=== PATIENT | female | born 1980 | race Caucasian/White ===

== ENCOUNTER 2018-04-15 18:30 | Emergency (ER) | payer OTHER, SELFPAY ==
[2018-04-15 18:43] VITALS: BP 116/68; PULSE 82; RESP 16; TEMP 36.7; O2SAT 97
--- NOTE | 2018-04-15 18:49 | DI.RAD.S_ITS ---
PROCEDURE: XR FINGER RT MIN 2V INDICATIONS: pain and bruising TECHNIQUE: AP hand, 2 views of the right first finger(s) acquired. COMPARISON: None. FINDINGS: Exam limited by motion artifact. Bones: Cortical contour irregularity at the base of the first distal phalanx. Soft tissues: No suspicious soft tissue calcifications. IMPRESSION: Cortical contour irregularity at the base of the right first distal phalanx which may represent a nondisplaced fracture. Recommend followup radiographs in 7-10 days for further evaluation. Dictated by: Satnam Joe M.D. on 04/15/2018 at 20:00 Approved by: Satnam Joe M.D. on 04/15/2018 at 20:03
--- NOTE | 2018-04-15 19:55 | ED.UPPEXIN ---
HPI - Extremity Injury (Upper) General Chief Complaint: Extremity Injury, Upper Stated Complaint: RT THUMB INJURY Time Seen by Provider: 04/15/18 19:55 Source: patient Mode of arrival: ambulatory Limitations: no limitations History of Present Illness HPI narrative: Patient presents with right thumb injury after slamming her car door shut and over extending her thumb. She did not slam the door. She has a noncontributory medical history. She has increasing pain with range of motion and improvement with rest. She denies any numbness, tingling or weakness. She denies other injury. She has no history of the same MD complaint: injury to: right and finger Other injuries: none Handedness: right Place: home Severity: mild Relieving factors: none Exacerbating factors: none Context: direct blow Related Data Home Medications Medication Instructions Recorded Confirmed cetirizine 10 mg PO QDAYP PRN #0 07/30/17 levothyroxine [Synthroid] 0.075 mg PO QDAY #0 07/30/17 omeprazole 20 mg PO QDAY #0 07/30/17 Previous Rx's Medication Instructions Recorded hydroxyzine HCl 0 mg PO Q6HP PRN #20 tab 07/30/17 Allergies Allergy/AdvReac Type Severity Reaction Status Date / Time ciprofloxacin [From CIPRO] Allergy Severe Dizziness Unverified 04/15/18 18:43 Sulfa (Sulfonamide Allergy Severe Vomiting Unverified 04/15/18 18:43 Antibiotics) [SULFA (SULFONAMIDE ANTIBIOTICS)] latex [LATEX] Allergy Intermediate RASH Unverified 11/25/17 12:13 shrimp [SHRIMP] Allergy Intermediate Unverified 11/25/17 12:13 nitrofurantoin Allergy Verified 04/15/18 18:43 [From Macrobid] EGGS Allergy Intermediate Uncoded 11/25/17 12:13 AVACADO Allergy Unknown Uncoded 11/25/17 12:13 Review of Systems Review of Systems All systems reviewed & are unremarkable except as noted in HPI and below Constitutional Denies chills, Denies fever(s), Denies lethargy and Denies weakness Eyes Denies change in vision, Denies eye discharge, Denies irritation and Denies loss of vision ENT Ears, Nose, Mouth, and Throat: Denies change in voice, Denies neck pain and Denies sore throat Cardiovascular Denies chest pain, Denies irregular heart rhythm, Denies lightheadedness, Denies palpitations, Denies dyspnea, Denies dyspnea on exertion and Denies orthopnea Respiratory Denies cough, Denies dyspnea, Denies dyspnea on exertion and Denies wheezing Gastrointestinal Gastrointestinal: Denies abdominal pain, Denies change in bowel habits, Denies diarrhea, Denies nausea and Denies vomiting Genitourinary Denies hematuria, Denies flank pain, Denies urinary incontinence and Denies urinary urgency Musculoskeletal Reports joint swelling, Reports limited range of motion and Denies neck pain Integumentary/Breasts Denies pruritus, Denies erythema, Denies rash and Denies wounds Neurologic Denies confusion, Denies loss of vision and Denies weakness Psychiatric Denies anxiety, Denies confusion, Denies depression, Denies homicidal ideation and Denies suicidal ideation Endocrine Denies palpitations Hematologic/Lymphatic Denies easy bruising Allergic/Immunologic Denies wheezing [facility] Social History Smoking Status: Never smoker Exam Narrative Exam Narrative: GEN: AOx3 and in mild distress EYES: Pupils are equal, round, and reactive to light and accommodation. Extraoccular muscles are intact bilaterally. There is no subconjunctival hemorrhage or exudate. CHEST: Lungs are clear to auscultation bilaterally and free of wheezes, rales, or rhonchi. Heart rate is regular rhythm, there are no murmurs, clicks, rubs, or gallops. There is no chest wall tenderness. ABD: Abdomen is soft and nontender. There is no guarding or rebound. Bowel sounds are normal in all 4 quadrants. There is no mass or organomegaly. EXT: Full but painful range of motion of right thumb with tenderness at the interphalangeal joint Full painless ROM of all extremities with no loss of sensation or strength. SKIN: Warm, pink, and dry. No erythema or rash Initial Vital Signs Initial Vital Signs: Vital Signs Temperature 98.0 F 04/15/18 18:43 Pulse Rate 82 04/15/18 18:43 Respiratory Rate 16 04/15/18 18:43 Blood Pressure 116/68 04/15/18 18:43 Pulse Oximetry 97 04/15/18 18:43 Procedures Orthopedic Splinting/Casting Injury #1: Side: right Upper Extremity Injury Location: finger Upper Extremity Immobilizer: thumb spica Course Orders Ordered: ED Orders 04/15/18 18:49 XR finger RT min 2V Stat Vital Signs - 8 hr 04/15/18 18:43 04/15/18 20:18 Temperature 98.0 F 98.0 F Pulse Rate 82 82 Respiratory Rate 16 16 Blood Pressure 116/68 116/68 Pulse Oximetry 97 97 MDM - Extremity Injury (Upper) Differential Diagnosis Differential diagnosis: Likely finger sprain, dislocation of finger and fracture of hand Imaging Data Finger Xray: Radiologist's impression: [address] [address] XRay Report Signed Patient: Zunilda Richards [facility]#: [id number] : 1980Acct:[id number] Age/Sex: 37 / FDate of Service: 04/15/18 Loc: ED Accession Number: [id number] Procedure: XR finger RT min 2V Ordering Provider: Mynor Jensen D.O. PROCEDURE: XR FINGER RT MIN 2V INDICATIONS: pain and bruising TECHNIQUE: AP hand, 2 views of the right first finger(s) acquired. COMPARISON: None. FINDINGS: Exam limited by motion artifact. Bones: Cortical contour irregularity at the base of the first distal phalanx. Soft tissues: No suspicious soft tissue calcifications. IMPRESSION: Cortical contour irregularity at the base of the right first distal phalanx which may represent a nondisplaced fracture. Recommend followup radiographs in 7-10 days for further evaluation. Dictated by: Satnam Joe M.D. on 04/15/2018 at 20:00 Approved by: Satnam Joe M.D. on 04/15/2018 at 20:03 Discharge Plan Departure Patient Disposition: Home Clinical Impression: Fracture of thumb Discharge Date/Time: 04/15/18 20:50 Interventions: ED Discharge Assessment Last Done: 04/15/18 20:53 Instructions: DI for Finger Fracture Activity Restrictions/Additional Instructions: *You have been diagnosed with [ non displaced thumb fracture ] *What to do: *Wear splint for comfort, more often than not until you can follow up *Follow up with your primary care provider in 2-3 days, call for an appointment. Let them know you were seen in the Emergency Department and that we ask that you be seen in follow up *Return to ER if you should have any new, worsening or concerning symptoms Prescriptions: No Action cetirizine 10 MG tablet 10 mg PO QDAYP PRNQty: 0 RF: 0 levothyroxine [Synthroid] 75 MCG tablet 0.075 mg PO QDAY Qty: 0 RF: 0 omeprazole 20 MG capsule,delayed release(DR/EC) 20 mg PO QDAY Qty: 0 RF: 0 hydroxyzine HCl 25 MG tablet PO Q6HP PRNQty: 20 RF: 0 Referrals: Singh Petty CNP [Primary Care Provider] - Tabby Simon MD [Physician] -
[2018-04-15 20:18] VITALS: BP 116/68; PULSE 82; RESP 16; TEMP 36.7; O2SAT 97
--- NOTE | 2018-04-15 20:20 | ED_ITS ---
HPI - Extremity Injury (Upper) General Chief Complaint: Extremity Injury, Upper Stated Complaint: RT THUMB INJURY Time Seen by Provider: 04/15/18 19:55 Source: patient Mode of arrival: ambulatory Limitations: no limitations History of Present Illness HPI narrative: Patient presents with right thumb injury after slamming her car door shut and over extending her thumb. She did not slam the door. She has a noncontributory medical history. She has increasing pain with range of motion and improvement with rest. She denies any numbness, tingling or weakness. She denies other injury. She has no history of the same MD complaint: injury to: right and finger Other injuries: none Handedness: right Place: home Severity: mild Relieving factors: none Exacerbating factors: none Context: direct blow Related Data Home Medications Medication Instructions Recorded Confirmed cetirizine 10 mg PO QDAYP PRN #0 07/30/17 levothyroxine [Synthroid] 0.075 mg PO QDAY #0 07/30/17 omeprazole 20 mg PO QDAY #0 07/30/17 Previous Rx's Medication Instructions Recorded hydroxyzine HCl 0 mg PO Q6HP PRN #20 tab 07/30/17 Allergies Allergy/AdvReac Type Severity Reaction Status Date / Time ciprofloxacin [From CIPRO] Allergy Severe Dizziness Unverified 04/15/18 18:43 Sulfa (Sulfonamide Allergy Severe Vomiting Unverified 04/15/18 18:43 Antibiotics) [SULFA (SULFONAMIDE ANTIBIOTICS)] latex [LATEX] Allergy Intermediate RASH Unverified 11/25/17 12:13 shrimp [SHRIMP] Allergy Intermediate Unverified 11/25/17 12:13 nitrofurantoin Allergy Verified 04/15/18 18:43 [From Macrobid] EGGS Allergy Intermediate Uncoded 11/25/17 12:13 AVACADO Allergy Unknown Uncoded 11/25/17 12:13 Review of Systems Review of Systems All systems reviewed & are unremarkable except as noted in HPI and below Constitutional Denies chills, Denies fever(s), Denies lethargy and Denies weakness Eyes Denies change in vision, Denies eye discharge, Denies irritation and Denies loss of vision ENT Ears, Nose, Mouth, and Throat: Denies change in voice, Denies neck pain and Denies sore throat Cardiovascular Denies chest pain, Denies irregular heart rhythm, Denies lightheadedness, Denies palpitations, Denies dyspnea, Denies dyspnea on exertion and Denies orthopnea Respiratory Denies cough, Denies dyspnea, Denies dyspnea on exertion and Denies wheezing Gastrointestinal Gastrointestinal: Denies abdominal pain, Denies change in bowel habits, Denies diarrhea, Denies nausea and Denies vomiting Genitourinary Denies hematuria, Denies flank pain, Denies urinary incontinence and Denies urinary urgency Musculoskeletal Reports joint swelling, Reports limited range of motion and Denies neck pain Integumentary/Breasts Denies pruritus, Denies erythema, Denies rash and Denies wounds Neurologic Denies confusion, Denies loss of vision and Denies weakness Psychiatric Denies anxiety, Denies confusion, Denies depression, Denies homicidal ideation and Denies suicidal ideation Endocrine Denies palpitations Hematologic/Lymphatic Denies easy bruising Allergic/Immunologic Denies wheezing [facility] Social History Smoking Status: Never smoker Exam Narrative Exam Narrative: GEN: AOx3 and in mild distress EYES: Pupils are equal, round, and reactive to light and accommodation. Extraoccular muscles are intact bilaterally. There is no subconjunctival hemorrhage or exudate. CHEST: Lungs are clear to auscultation bilaterally and free of wheezes, rales, or rhonchi. Heart rate is regular rhythm, there are no murmurs, clicks, rubs, or gallops. There is no chest wall tenderness. ABD: Abdomen is soft and nontender. There is no guarding or rebound. Bowel sounds are normal in all 4 quadrants. There is no mass or organomegaly. EXT: Full but painful range of motion of right thumb with tenderness at the interphalangeal joint Full painless ROM of all extremities with no loss of sensation or strength. SKIN: Warm, pink, and dry. No erythema or rash Initial Vital Signs Initial Vital Signs: Vital Signs Temperature 98.0 F 04/15/18 18:43 Pulse Rate 82 04/15/18 18:43 Respiratory Rate 16 04/15/18 18:43 Blood Pressure 116/68 04/15/18 18:43 Pulse Oximetry 97 04/15/18 18:43 Procedures Orthopedic Splinting/Casting Injury #1: Side: right Upper Extremity Injury Location: finger Upper Extremity Immobilizer: thumb spica Course Orders Ordered: ED Orders 04/15/18 18:49 XR finger RT min 2V Stat Vital Signs - 8 hr 04/15/18 18:43 04/15/18 20:18 Temperature 98.0 F 98.0 F Pulse Rate 82 82 Respiratory Rate 16 16 Blood Pressure 116/68 116/68 Pulse Oximetry 97 97 MDM - Extremity Injury (Upper) Differential Diagnosis Differential diagnosis: Likely finger sprain, dislocation of finger and fracture of hand Imaging Data Finger Xray: Radiologist's impression: [address] [address] XRay Report Signed Patient: Zunilda Richards [facility]#: [id number] : 1980Acct:[id number] Age/Sex: 37 / FDate of Service: 04/15/18 Loc: ED Accession Number: [id number] Procedure: XR finger RT min 2V Ordering Provider: Mynor Jensen D.O. PROCEDURE: XR FINGER RT MIN 2V INDICATIONS: pain and bruising TECHNIQUE: AP hand, 2 views of the right first finger(s) acquired. COMPARISON: None. FINDINGS: Exam limited by motion artifact. Bones: Cortical contour irregularity at the base of the first distal phalanx. Soft tissues: No suspicious soft tissue calcifications. IMPRESSION: Cortical contour irregularity at the base of the right first distal phalanx which may represent a nondisplaced fracture. Recommend followup radiographs in 7 -10 days for further evaluation. Dictated by: Satnam Joe M.D. on 04/15/2018 at 20:00 Approved by: Satnam Joe M.D. on 04/15/2018 at 20:03 Discharge Plan Departure Patient Disposition: Home Clinical Impression: Fracture of thumb Discharge Date/Time: 04/15/18 20:50 Interventions: ED Discharge Assessment Last Done: 04/15/18 20:53 Instructions: DI for Finger Fracture Activity Restrictions/Additional Instructions: *You have been diagnosed with [ non displaced thumb fracture ] *What to do: *Wear splint for comfort, more often than not until you can follow up *Follow up with your primary care provider in 2-3 days, call for an appointment. Let them know you were seen in the Emergency Department and that we ask that you be seen in follow up *Return to ER if you should have any new, worsening or concerning symptoms Prescriptions: No Action cetirizine 10 MG tablet 10 mg PO QDAYP PRNQty: 0 RF: 0 levothyroxine [Synthroid] 75 MCG tablet 0.075 mg PO QDAY Qty: 0 RF: 0 omeprazole 20 MG capsule,delayed release(DR/EC) 20 mg PO QDAY Qty: 0 RF: 0 hydroxyzine HCl 25 MG tablet PO Q6HP PRNQty: 20 RF: 0 Referrals: Singh Petty CNP [Primary Care Provider] - Tabby Simon MD [Physician] -
== END 2018-04-15 20:50 | disposition home or self-care (01) ==
PROVIDERS: Emergency Provider Emergency Medicine; Family Provider Registered Nurse Diabetes Educator; PCP Registered Nurse Diabetes Educator
DX: S62.501A Fracture of unspecified phalanx of right thumb, initial encounter for closed fracture (principal); W23.0XXA Caught, crushed, jammed, or pinched between moving objects, initial encounter
CPT/HCPCS: 73140; 99282; 99283

== ENCOUNTER 2018-05-12 08:41 | Emergency (ER) | payer OTHER, SELFPAY ==
--- NOTE | 2018-05-12 08:59 | ED.ABDPAIN ---
HPI - Abdominal Pain General Chief Complaint: Abdominal Pain Stated Complaint: abdomen on fire, bloody stool Time Seen by Provider: 05/12/18 08:59 Source: patient Mode of arrival: ambulatory Limitations: no limitations History of Present Illness HPI narrative: The patient is an otherwise healthy 37-year-old female without prior abdominal issues and without prior abdominal surgeries here for evaluation of 2-3 days of generalized abdominal pain and then approximately 1 day of bloody stools. She also states that she has started her menstrual cycle 3 days ago. She states she has not had a menstrual cycle for years secondary to having the IUD in placed. She denies any other symptoms to include fevers or urinary symptoms. No recent camping. Patient is not concerned about sexually transmitted infections. Has not tried anything for abdominal pain since then. She states that having bowel movements have not changed her abdominal pain. No vomiting. Related Data Home Medications Medication Instructions Recorded Confirmed cetirizine 10 mg PO QDAYP PRN #0 07/30/17 05/12/18 omeprazole 20 mg PO QDAY #0 07/30/17 05/12/18 cyclobenzaprine 1 tab PO PRN PRN 05/12/18 05/12/18 ibuprofen 800 mg PO PRN PRN 05/12/18 05/12/18 levothyroxine [Synthroid] 25 mcg PO DAILY 05/12/18 05/12/18 pseudoephedrine HCl [Sudafed] 1 tab PO PRN PRN 05/12/18 05/12/18 Allergies Allergy/AdvReac Type Severity Reaction Status Date / Time ciprofloxacin [From CIPRO] Allergy Severe Dizziness Verified 05/12/18 09:08 shrimp [SHRIMP] Allergy Severe Anaphylaxis Verified 05/12/18 10:36 Sulfa (Sulfonamide Allergy Severe Vomiting Verified 05/12/18 09:08 Antibiotics) [SULFA (SULFONAMIDE ANTIBIOTICS)] latex [LATEX] Allergy Intermediate RASH Verified 05/12/18 09:08 nitrofurantoin Allergy Verified 05/12/18 09:08 [From Macrobid] EGGS Allergy Intermediate Uncoded 05/12/18 09:08 AVACADO Allergy Unknown Uncoded 05/12/18 09:08 Review of Systems Constitutional Denies fever(s), Denies headache(s), Denies lethargy and Denies malaise ENT Ears, Nose, Mouth, and Throat: Denies vertigo and Denies headache(s) Cardiovascular Denies chest pain, Denies palpitations and Denies dyspnea Respiratory Denies cough and Denies dyspnea Gastrointestinal Gastrointestinal: Reports abdominal pain, Reports hematochezia, Reports change in bowel habits, Denies coffee ground emesis, Denies nausea and Denies vomiting Genitourinary Denies dysuria and Reports vaginal discharge (Started her menstrual cycle 3 days ago) Musculoskeletal Denies myalgias and Denies arthralgias Integumentary/Breasts Denies lesions and Denies rash Neurologic Denies confusion, Denies vertigo and Denies headache(s) Psychiatric Denies confusion Endocrine Denies palpitations Hematologic/Lymphatic Denies easy bleeding and Denies easy bruising Allergic/Immunologic Denies urticaria [facility]LY [facility] Medical History Gastroesophageal reflux disease (Acute) Hypothyroid (Acute) Surgical History No pertinent past surgical history (Acute) Social History Smoking Status: Never smoker Exam Initial Vital Signs Initial Vital Signs: Vital Signs Temperature 98.2 F 05/12/18 09:08 Pulse Rate 77 05/12/18 09:08 Respiratory Rate 15 05/12/18 09:08 Blood Pressure 101/65 05/12/18 09:08 Pulse Oximetry 97 05/12/18 09:08 Const General: cooperative, healthy appearing, comfortable, well developed, well groomed and No acute distress Orientation: alert, awake and oriented x3 HENMT Head: normal to inspection and normocephalic Resp Effort & Inspection: normal respiratory effort Auscultation: clear to auscultation bilaterally Cardio Rate: regular rate Rhythm: regular rhythm Heart Sounds: no murmurs Pulses: radial pulses present GI Inspection: non-distended Palpation: soft, No firm, No guarding, No rigid and tender (Diffusely tender without rebound or guarding) Rectal Exam: visual inspection normal, heme positive stool and No hemorrhoids Skin Lesions: no lesions Rashes: no rashes Neuro General: alert, awake and oriented x3 Cognition: normal cognition Speech: speech normal Motor: muscle tone normal throughout Extrem General: normal to inspection and capillary refill normal Psych Appearance: grossly normal and well kempt Course Orders Ordered: ED Orders 05/12/18 10:30 Complete Blood Count AUTO DIFF Stat Comprehensive Metabolic Panel Stat Lipase Stat Urine Microscopic Stat 05/12/18 10:32 CT abdomen pelvis w con Stat Discontinued Medications Sodium Chloride (Normal Saline 0.9%) 1,000 mls @ 1,000 mls/hr IV BOLUS ONE Stop: 05/12/18 11:24 Last Infusion: 05/12/18 12:47 Dose: 0 mls/hr Admin: 05/12/18 10:51 Dose: 1,000 mls/hr Vital Signs - 8 hr 05/12/18 11:25 05/12/18 12:45 Pulse Rate 64 Respiratory Rate 14 16 Blood Pressure [Left Arm] 105/64 100/66 Pulse Oximetry 97 MDM - Abdominal Pain Lab Data Attestation: I reviewed the patient's lab results. Result diagrams: 05/12/18 10:30 05/12/18 10:30 Lab Results 05/12/18 05/12/18 05/12/18 Range/Units 10:30 10:30 10:30 WBC 8.5 (4.5-11.0) X10^3/uL RBC 4.26 (4.0-5.2) X10^6/uL Hgb 13.9 (12.0-16.0) g/dL Hct 41.1 (36-46) % MCV 96.5 (80-100) fL MCH 32.6 (26-34) PG MCHC 33.8 (30-36) % RDW 14.3 (11.6-14.8) % Plt Count 206 (150-400) X10^3/uL Neut % (Auto) 75.6 H (50-75) % Lymph % (Auto) 15.9 L (25-40) % [place] % (Auto) 6.4 (3-14) % Eos % (Auto) 1.3 L (2-4) % Baso % (Auto) 0.8 (0-2) % Neut # (Auto) 6400 H (7263-7419) /uL Sodium 145 (137-145) mmol/L Potassium 4.1 (3.4-5.1) mmol/L Chloride 109 H (98-107) mmol/L Carbon Dioxide 25 (22-32) mmol/L BUN 11 (7-17) mg/dL Creatinine 0.60 (0.52-1.04) mg/dL Estimated GFR > 60.0 (>60) mL/min BUN/Creatinine Ratio 18.3 (6-22) Glucose 102 H (70-100) mg/dL Calcium 9.1 (8.4-10.2) mg/dL Total Bilirubin 0.7 (0.2-1.3) mg/dL AST 19 (14-36) IU/L ALT 25 (9-52) IU/L Alkaline Phosphatase 45 (38-126) U/L Total Protein 7.1 (6.3-8.2) g/dL Albumin 4.2 (3.5-5.0) g/dL Globulin 2.9 (1.7-4.1) g/dL Albumin/Globulin Ratio 1.4 (1.0-2.8) Lipase 87 (23-300) U/L Urine RBC None seen (0-5/HPF) Urine WBC None seen (0-5/HPF) Ur Squamous Epith Cells 5-10 /hpf H Urine Bacteria Moderate (10-30) H (None) Ur Culture Indicated? Cult not indicated Micro UA Comment Not Reportable Point of care testing: Point of Care Testing Test Results Negative Urine Dip Bedside Urine Glucose Negative Bedside Urine Bilirubin - Negative Bedside Urine Ketone ++ 40 Urine Specific [place] 1.025 Bedside Urine Occult Blood - Negative Bedside Urine pH 6.5 Bedside Urine Protein - Negative Bedside Urine Urobilinogen - Negative Bedside Urine Nitrite - Negative Bedside Urine Leukocytes - Negative Esterase Imaging Data CT scan - abdomen: Radiologist's impression: PROCEDURE: CT ABDOMEN PELVIS W CON INDICATIONS: Abdominal plain with rectal bleeding TECHNIQUE: After the administration of oral and intravenous contrast, 5 mm thick sections acquired from the diaphragms to the symphysis. 5 mm thick coronal and sagittal reformats were performed. For radiation dose reduction, the following was used: automated exposure control, adjustment of mA and/or kV according to patient size. COMPARISON: None. FINDINGS: Image quality: Diagnostic. ABDOMEN: Lung bases: Lung bases are clear. Heart size is normal. Solid organs: Liver is normal in size and enhancement. Gallbladder is not enlarged or inflamed. Biliary system is non-dilated. Pancreas enhances normally. Spleen is normal in size and enhancement. No adrenal nodules. Kidneys are normal in size and enhancement, without hydronephrosis. Peritoneum and bowel: The stomach, duodenum and remainder of the small bowel loops are nondilated. The appendix is well-visualized and normal. There is thickening involving the wall of the descending colon. Scattered areas of colonic diverticulosis are present. No definite mesenteric inflammation is appreciated. No free fluid, loculated fluid collection or free air is seen within the abdomen. Nodes and vessels: No retroperitoneal or mesenteric adenopathy. Aorta and inferior vena cava are normal in caliber. Miscellaneous: No ventral hernias. PELVIS: Genitourinary: Bladder wall thickness is normal. Intrauterine contraceptive device is identified within the endometrial cavity. The uterus is moderately heterogeneous, particularly involving the cervix. Miscellaneous: No inguinal hernias or adenopathy. A small amount of free fluid is seen within the pelvis. There is no loculated fluid collection or free air. Bones: No suspicious bony lesions. No vertebral body compression fractures. IMPRESSION: 1. Nonspecific wall thickening of the distal colon may represent colitis. There is no bowel obstruction. 2. Scattered colonic diverticulosis without convincing evidence of diverticulitis. 3. Heterogeneous enhancement of the uterus may be within normal limits. Please correlate clinically to exclude the possibility of an inflammatory process involving the uterus or cervix. 4. Normal appendix. Dictated by: Yogesh Santana M.D. on 05/12/2018 at 10:41 Approved by: Yogesh Santana M.D. on 05/12/2018 at 10:44 MDM Narrative Medical decision making narrative: Patient has a benign abdominal exam was grossly positive of blood on the rectal exam. The CT scan does show a colitis however no signs of diverticulitis or bowel obstructions. Patient has no risk for infectious colitis. She is afebrile does not have an elevated white blood cell count. Will hold on any antibiotics for now. Patient has started her menstrual cycle which could be within the realm of normal even with a IUD and not having a menstrual cycle for the past 4 years. Patient states she is not concerned about any sexually transmitted infections does not having any vaginal discharge except for the bleeding. Informed patient about staying hydrated. She is going to contact her primary care doctor to discuss the referral to see Gastroenterology. Patient was given return precautions. She expressed understanding and agreement with plan Discharge Plan Departure Patient Disposition: Home Clinical Impression: Colitis, Vaginal bleeding Discharge Date/Time: 05/12/18 12:48 Interventions: ED Discharge Assessment Last Done: 05/12/18 12:48 Instructions: DI for Colitis Activity Restrictions/Additional Instructions: Recommend you increase your fluid intake. Contact your primary care doctor for a follow-up and to discuss the indications for referral to see gastroenterology. Return to the emergency department for any new or worsening symptoms Prescriptions: No Action cetirizine 10 MG tablet 10 mg PO QDAYP PRN (Reason: Allergy Symptoms) Qty: 0 RF: 0 omeprazole 20 MG capsule,delayed release(DR/EC) 20 mg PO QDAY Qty: 0 RF: 0 levothyroxine [Synthroid] 50 mcg tablet 25 mcg PO DAILY RF: 0 ibuprofen 200 mg Tablet 800 mg PO PRN PRN (Reason: pain) RF: 0 pseudoephedrine HCl [Sudafed] 30 mg Tablet 1 tab PO PRN PRN (Reason: Congestion) RF: 0 cyclobenzaprine 1 tab PO PRN PRN (Reason: Spasms) RF: 0
[2018-05-12 09:08] VITALS: BP 101/65; PULSE 77; RESP 15; TEMP 36.8; O2SAT 97; BMI 20.4
--- NOTE | 2018-05-12 10:32 | DI.CT.S_ITS ---
PROCEDURE: CT ABDOMEN PELVIS W CON INDICATIONS: Abdominal plain with rectal bleeding TECHNIQUE: After the administration of oral and intravenous contrast, 5 mm thick sections acquired from the diaphragms to the symphysis. 5 mm thick coronal and sagittal reformats were performed. For radiation dose reduction, the following was used: automated exposure control, adjustment of mA and/or kV according to patient size. COMPARISON: None. FINDINGS: Image quality: Diagnostic. ABDOMEN: Lung bases: Lung bases are clear. Heart size is normal. Solid organs: Liver is normal in size and enhancement. Gallbladder is not enlarged or inflamed. Biliary system is non-dilated. Pancreas enhances normally. Spleen is normal in size and enhancement. No adrenal nodules. Kidneys are normal in size and enhancement, without hydronephrosis. Peritoneum and bowel: The stomach, duodenum and remainder of the small bowel loops are nondilated. The appendix is well-visualized and normal. There is thickening involving the wall of the descending colon. Scattered areas of colonic diverticulosis are present. No definite mesenteric inflammation is appreciated. No free fluid, loculated fluid collection or free air is seen within the abdomen. Nodes and vessels: No retroperitoneal or mesenteric adenopathy. Aorta and inferior vena cava are normal in caliber. Miscellaneous: No ventral hernias. PELVIS: Genitourinary: Bladder wall thickness is normal. Intrauterine contraceptive device is identified within the endometrial cavity. The uterus is moderately heterogeneous, particularly involving the cervix. Miscellaneous: No inguinal hernias or adenopathy. A small amount of free fluid is seen within the pelvis. There is no loculated fluid collection or free air. Bones: No suspicious bony lesions. No vertebral body compression fractures. IMPRESSION: 1. Nonspecific wall thickening of the distal colon may represent colitis. There is no bowel obstruction. 2. Scattered colonic diverticulosis without convincing evidence of diverticulitis. 3. Heterogeneous enhancement of the uterus may be within normal limits. Please correlate clinically to exclude the possibility of an inflammatory process involving the uterus or cervix. 4. Normal appendix. Dictated by: Yogesh Santana M.D. on 05/12/2018 at 10:41 Approved by: Yogesh Santana M.D. on 05/12/2018 at 10:44
[2018-05-12 10:41] LABS: RBC Urine None Seen (0-5/HPF); WBC Urine None Seen (0-5/HPF)
[2018-05-12 10:43] LABS: Add Manual Diff / Slide Review NO; Basophils Percent Auto 0.8 % (0-2); Eosinophils Percent Auto 1.3 % (2-4); Hematocrit 41.1 % (36-46); Hemoglobin 13.9 g/dL (12.0-16.0); Lymphocytes Percent Auto 15.9 % (25-40); Mean Corpuscular HGB Conc 33.8 % (30-36); Mean Corpuscular Hemoglobin 32.6 PG (26-34); Mean Corpuscular Volume 96.5 fL (80-100); Monocytes Percent Auto 6.4 % (3-14); Neutrophils Absolute Auto 6400 /uL (3000-5900); Neutrophils Percent Auto 75.6 % (50-75); Platelet Count 206 X10^3/uL (150-400); Red Blood Cell Count 4.26 X10^6/uL (4.0-5.2); Red Cell Distribution Width 14.3 % (11.6-14.8); White Blood Cell Count 8.5 X10^3/uL (4.5-11.0)
[2018-05-12 10:45] LABS: Bacteria Urine Moderate (10-30); Culture Indicated Urine Cult Not Indicated; Squamous Epithelial Cell Urine 5-10 /HPF
[2018-05-12] MEDS: SODIUM CHLORIDE 0.9% 1,000 ML 1000 ML IV (10:51)
[2018-05-12 10:53] LABS: Alanine Aminotransferase 25 IU/L (9-52); Albumin 4.2 g/dL (3.5-5.0); Albumin Globulin Ratio 1.4 (1.0-2.8); Alkaline Phosphatase 45 U/L (38-126); Aspartate Aminotransferase 19 IU/L (14-36); BUN Creatinine Ratio 18.3 (6-22); Bilirubin Total 0.7 mg/dL (0.2-1.3); Blood Urea Nitrogen 11 mg/dL (7-17); Calcium 9.1 mg/dL (8.4-10.2); Carbon Dioxide 25 mmol/L (22-32); Chloride 109 mmol/L (98-107); Estimated Glomerular Filt Rate > 60.0 mL/min (>60); Globulin 2.9 g/dL (1.7-4.1); Glucose 102 mg/dL (70-100); HEMOLYSIS 20 (0-50); Lipase 87 U/L (23-300); Potassium 4.1 mmol/L (3.4-5.1); Sodium 145 mmol/L (137-145); Total Protein 7.1 g/dL (6.3-8.2)
[2018-05-12 11:25] VITALS: BP 105/64; RESP 14
[2018-05-12 12:45] VITALS: BP 100/66; PULSE 64; RESP 16; O2SAT 97
== END 2018-05-12 12:48 | disposition home or self-care (01) ==
PROVIDERS: Emergency Provider Emergency Medicine; Family Provider Registered Nurse Diabetes Educator; PCP Registered Nurse Diabetes Educator
DX: K52.9 Noninfective gastroenteritis and colitis, unspecified (principal); N93.9 Abnormal uterine and vaginal bleeding, unspecified
CPT/HCPCS: 36591; 74177; 80053; 81003; 81015; 81025; 83690; 85025; 96360; 96361; 99283; 99285; Q9967

== ENCOUNTER 2018-07-07 12:04 | Emergency (ER) | payer OTHER, SELFPAY ==
[2018-07-07 12:27] VITALS: BP 105/72; PULSE 89; RESP 18; TEMP 37.1; O2SAT 97; BMI 19.6
--- NOTE | 2018-07-07 13:05 | ED_ITS ---
HPI - Abdominal Pain General Chief Complaint: Abdominal Pain Stated Complaint: had endoscopy upper and lower last , pain Time Seen by Provider: 07/07/18 13:03 Source: patient Mode of arrival: ambulatory Limitations: no limitations History of Present Illness HPI narrative: Patient is a 37-year-old female who I evaluated here in the emergency department a couple months ago for abdominal pain. Was diagnosed with colitis. She states since then she is had a colonoscopy and upper endoscopy. She states that was done approximately 5 days ago. She states that since the day after that surgery she has had generalized abdominal pain. No longer has any diarrhea. No blood in her stool. No urinary symptoms. No fevers. No vomiting. She states the pain does seem to be associated with eating. She cannot pinpoint the exact location but does think it is more tender in the right upper quadrant. Has been taking some Motrin at home for this pain. Related Data Home Medications Medication Instructions Recorded Confirmed cetirizine 10 mg PO QDAYP PRN #0 07/30/17 05/12/18 omeprazole 20 mg PO QDAY #0 07/30/17 05/12/18 cyclobenzaprine 1 tab PO PRN PRN 05/12/18 05/12/18 ibuprofen 800 mg PO PRN PRN 05/12/18 05/12/18 levothyroxine [Synthroid] 25 mcg PO DAILY 05/12/18 05/12/18 pseudoephedrine HCl [Sudafed] 1 tab PO PRN PRN 05/12/18 05/12/18 Allergies Allergy/AdvReac Type Severity Reaction Status Date / Time ciprofloxacin [From CIPRO] Allergy Severe Dizziness Verified 05/12/18 09:08 shrimp [SHRIMP] Allergy Severe Anaphylaxis Verified 05/12/18 10:36 Sulfa (Sulfonamide Allergy Severe Vomiting Verified 05/12/18 09:08 Antibiotics) [SULFA (SULFONAMIDE ANTIBIOTICS)] latex [LATEX] Allergy Intermediate RASH Verified 05/12/18 09:08 nitrofurantoin Allergy Verified 05/12/18 09:08 [From Macrobid] EGGS Allergy Intermediate Uncoded 05/12/18 09:08 AVACADO Allergy Unknown Uncoded 05/12/18 09:08 Review of Systems Constitutional Denies fever(s) and Denies headache(s) ENT Ears, Nose, Mouth, and Throat: Denies vertigo and Denies headache(s) Cardiovascular Denies chest pain, Denies syncope and Denies dyspnea Respiratory Denies dyspnea Gastrointestinal Gastrointestinal: Reports abdominal pain, Denies change in bowel habits, Denies nausea and Denies vomiting Genitourinary Denies dysuria Musculoskeletal Denies myalgias and Denies arthralgias Integumentary/Breasts Denies lesions and Denies rash Neurologic Denies vertigo, Denies syncope and Denies headache(s) Hematologic/Lymphatic Denies easy bleeding and Denies easy bruising [facility] Social History marital status: Smoking Status: Never smoker Exam Initial Vital Signs Initial Vital Signs: Vital Signs Temperature 98.8 F 07/07/18 12:27 Pulse Rate 89 07/07/18 12:27 Respiratory Rate 18 07/07/18 12:27 Blood Pressure 105/72 07/07/18 12:27 Pulse Oximetry 97 07/07/18 12:27 Const General: cooperative, healthy appearing, comfortable, well developed, well groomed and No acute distress Orientation: alert, awake and oriented x3 HENMT Head: normal to inspection and normocephalic Resp Effort & Inspection: normal respiratory effort Auscultation: clear to auscultation bilaterally Cardio Rate: regular rate Rhythm: regular rhythm Pulses: radial pulses present GI Inspection: non-distended Palpation: soft, No firm, No guarding, No rigid and tender (Generalized tenderness without rebound or guarding) Back/Spine/Pelvis Back: No CVA tenderness Skin Lesions: no lesions Rashes: no rashes Neuro General: alert, awake and oriented x3 Extrem General: normal to inspection and capillary refill normal Psych Appearance: grossly normal and well kempt Course Orders Ordered: ED Orders 07/07/18 13:17 XR abdomen 1V Stat 07/07/18 13:24 Complete Blood Count AUTO DIFF Stat Comprehensive Metabolic Panel Stat Lipase Stat 07/07/18 14:26 US abdomen complete Stat Vital Signs - 8 hr 07/07/18 12:27 Temperature 98.8 F Pulse Rate 89 Respiratory Rate 18 Blood Pressure 105/72 Pulse Oximetry 97 MDM - Abdominal Pain Medical Records Attestation: I reviewed the patient's medical records. Lab Data Attestation: I reviewed the patient's lab results. Result diagrams: 07/07/18 13:24 07/07/18 13:24 Lab Results 11/21/18 11/21/18 Range/Units 13:24 13:24 WBC 6.6 (4.5-11.0) X10^3/uL RBC 4.17 (4.0-5.2) X10^6/uL Hgb 13.4 (12.0-16.0) g/dL Hct 40.7 (36-46) % MCV 97.6 (80-100) fL MCH 32.2 (26-34) PG MCHC 33.0 (30-36) % RDW 14.4 (11.6-14.8) % Plt Count 222 (150-400) X10^3/uL Neut % (Auto) 67.1 (50-75) % Lymph % (Auto) 24.6 L (25-40) % [place] % (Auto) 7.2 (3-14) % Eos % (Auto) 0.8 L (2-4) % Baso % (Auto) 0.3 (0-2) % Neut # (Auto) 4400 (5330-4944) /uL Sodium 144 (137-145) mmol/L Potassium 3.7 (3.4-5.1) mmol/L Chloride 106 (98-107) mmol/L Carbon Dioxide 27 (22-32) mmol/L BUN 13 (7-17) mg/dL Creatinine 0.60 (0.52-1.04) mg/dL Estimated GFR > 60.0 (>60) mL/min BUN/Creatinine Ratio 21.7 (6-22) Glucose 91 (70-100) mg/dL Calcium 8.7 (8.4-10.2) mg/dL Total Bilirubin 0.4 (0.2-1.3) mg/dL AST 18 (14-36) IU/L ALT 31 (9-52) IU/L Alkaline Phosphatase 41 (38-126) U/L Total Protein 6.7 (6.3-8.2) g/dL Albumin 4.0 (3.5-5.0) g/dL Globulin 2.7 (1.7-4.1) g/dL Albumin/Globulin Ratio 1.5 (1.0-2.8) Lipase 881 H (23-300) U/L Point of care testing: Urine Dip Bedside Urine Glucose Negative Bedside Urine Bilirubin - Negative Bedside Urine Ketone - Negative Urine Specific [place] 1.030 Bedside Urine Occult Blood - Negative Bedside Urine pH 6.0 Bedside Urine Protein - Negative Bedside Urine Urobilinogen - Negative Bedside Urine Nitrite - Negative Bedside Urine Leukocytes - Negative Esterase Imaging Data US - abdomen: Radiologist's impression: PROCEDURE: US ABDOMEN COMPLETE INDICATIONS: PAIN TECHNIQUE: Real-time scanning was performed of the abdominal and retroperitoneal organs, with image documentation. COMPARISON: [facility], CT, CT ABDOMEN PELVIS W CON, 05/12/2018, 11:23. FINDINGS: Liver: Liver is normal in size and homogeneous in echotexture. Gallbladder: The gall bladder is normal in size without cholelithiasis or evidence of gallbladder wall inflammation. Biliary ducts: Intrahepatic bile ducts are non-dilated. Extrahepatic bile duct caliber measures 4 mm. Normal is 6-7 mm or less in diameter, or 10 mm or less post-cholecystectomy. Pancreas: Visualized portions of the pancreas are sonographically normal. Spleen: Spleen is normal in size and homogeneous in echotexture. Kidneys: Kidneys are normal in size and echotexture. Right kidney measures 9.4 cm long; left kidney measures 10.7 cm long. No hydronephrosis or shadowing nephrolithiasis. No solid masses. Aorta: Visualized aorta is normal in caliber at less than 3 cm. Iliacs: Proximal common iliac arteries are normal in caliber at less than 2.5 cm. IVC: Intrahepatic inferior vena cava is patent. Miscellaneous: No free abdominal fluid. IMPRESSION: 1. No acute abnormality is appreciated. 2. No cholelithiasis. 3. No hydronephrosis. Dictated by: Yogesh Santana M.D. on 07/07/2018 at 13:55 Approved by: Yogesh Santana M.D. on 07/07/2018 at 13:56 Abdominal x-ray: Radiologist's impression: PROCEDURE: XR ABDOMEN 1V INDICATIONS: abd pain eval for free air TECHNIQUE: One view of the abdomen acquired. COMPARISON: [facility], CT, CT ABDOMEN PELVIS W CON, 05/12/2018, 11:23. FINDINGS: Surgical changes and devices: The intrauterine contraceptive device is seen overlying the pelvis. Bowel: Bowel gas pattern is normal. No pneumoperitoneum is appreciated. Moderate residual stool seen within the colon. Soft tissues: No suspicious abdominal calcifications. Visualized solid organ contours appear normal in size. Bones: No suspicious bony lesions. IMPRESSION: 1. No evidence of pneumoperitoneum. 2. Moderate residual stool within the colon representing constipation. No bowel obstruction is evident. Dictated by: Yogesh Santana M.D. on 07/07/2018 at 13:08 Approved by: Yogesh Santana M.D. on 07/07/2018 at 13:08 [facility] Narrative Medical decision making narrative: Patient with a benign soft abdomen today. Right upper quadrant ultrasound was ordered secondary to her elevated lipase. She has a very little left upper quadrant abdominal pain. I feel that pancreatitis is unlikely. This elevation in the lipase could be secondary to inflammatory bowel disorder. Patient is tolerating oral intake. When I discussed with her the concerns about giving opioid pain medications in the concern for constipation the patient stated that she did not want to become constipated so she declined any offer for opioid pain meds. She was tolerating oral intake. X-ray was negative for free air under the diaphragm. I feel that given that it has been 5 days since her procedure and there is no free air under the diaphragm and relatively soft abdomen that perforation is unlikely. Will hold on further workup for now. Patient was given return precautions she and her were at bedside both expressed understanding and agreement plan. Discharge Plan Departure Patient Disposition: Home Clinical Impression: Abdominal pain, Elevated lipase Instructions: DI for Abdominal Pain-Adult Activity Restrictions/Additional Instructions: I recommend that you continue all of your medications as directed. Recommend that you eat a bland diet make sure your staying hydrated. Adding a fiber supplement 2 your diet is not unreasonable. Call your primary care doctor to discuss follow-up and discuss the indications for referral to see Gastroenterology. Return to the emergency department for any new or worsening symptoms Prescriptions: No Action cetirizine 10 MG tablet 10 mg PO QDAYP PRN (Reason: Allergy Symptoms) Qty: 0 RF: 0 omeprazole 20 MG capsule,delayed release(DR/EC) 20 mg PO QDAY Qty: 0 RF: 0 levothyroxine [Synthroid] 50 mcg tablet 25 mcg PO DAILY RF: 0 ibuprofen 200 mg Tablet 800 mg PO PRN PRN (Reason: pain) RF: 0 pseudoephedrine HCl [Sudafed] 30 mg Tablet 1 tab PO PRN PRN (Reason: Congestion) RF: 0 cyclobenzaprine 1 tab PO PRN PRN (Reason: Spasms) RF: 0
--- NOTE | 2018-07-07 13:17 | DI.RAD.S_ITS ---
PROCEDURE: XR ABDOMEN 1V INDICATIONS: abd pain eval for free air TECHNIQUE: One view of the abdomen acquired. COMPARISON: [facility], CT, CT ABDOMEN PELVIS W CON, 05/12/2018, 11:23. FINDINGS: Surgical changes and devices: The intrauterine contraceptive device is seen overlying the pelvis. Bowel: Bowel gas pattern is normal. No pneumoperitoneum is appreciated. Moderate residual stool seen within the colon. Soft tissues: No suspicious abdominal calcifications. Visualized solid organ contours appear normal in size. Bones: No suspicious bony lesions. IMPRESSION: 1. No evidence of pneumoperitoneum. 2. Moderate residual stool within the colon representing constipation. No bowel obstruction is evident. Dictated by: Yogesh Santana M.D. on 07/07/2018 at 13:08 Approved by: Yogesh Santana M.D. on 07/07/2018 at 13:08
[2018-07-07 13:32] LABS: Add Manual Diff / Slide Review NO; Basophils Percent Auto 0.3 % (0-2); Eosinophils Percent Auto 0.8 % (2-4); Hematocrit 40.7 % (36-46); Hemoglobin 13.4 g/dL (12.0-16.0); Lymphocytes Percent Auto 24.6 % (25-40); Mean Corpuscular Hemoglobin 32.2 PG (26-34); Mean Corpuscular Volume 97.6 fL (80-100); Monocytes Percent Auto 7.2 % (3-14); Neutrophils Absolute Auto 4400 /uL (3000-5900); Neutrophils Percent Auto 67.1 % (50-75); Platelet Count 222 X10^3/uL (150-400); Red Blood Cell Count 4.17 X10^6/uL (4.0-5.2); Red Cell Distribution Width 14.4 % (11.6-14.8); White Blood Cell Count 6.6 X10^3/uL (4.5-11.0)
[2018-07-07 13:55] LABS: Alanine Aminotransferase 31 IU/L (9-52); Albumin Globulin Ratio 1.5 (1.0-2.8); Alkaline Phosphatase 41 U/L (38-126); Aspartate Aminotransferase 18 IU/L (14-36); BUN Creatinine Ratio 21.7 (6-22); Bilirubin Total 0.4 mg/dL (0.2-1.3); Blood Urea Nitrogen 13 mg/dL (7-17); Calcium 8.7 mg/dL (8.4-10.2); Carbon Dioxide 27 mmol/L (22-32); Chloride 106 mmol/L (98-107); Estimated Glomerular Filt Rate > 60.0 mL/min (>60); Globulin 2.7 g/dL (1.7-4.1); Glucose 91 mg/dL (70-100); HEMOLYSIS < 15 (0-50); Lipase 881 U/L (23-300); Potassium 3.7 mmol/L (3.4-5.1); Sodium 144 mmol/L (137-145); Total Protein 6.7 g/dL (6.3-8.2)
--- NOTE | 2018-07-07 14:26 | DI.US.S_ITS ---
PROCEDURE: US ABDOMEN COMPLETE INDICATIONS: PAIN TECHNIQUE: Real-time scanning was performed of the abdominal and retroperitoneal organs, with image documentation. COMPARISON: [facility], CT, CT ABDOMEN PELVIS W CON, 05/12/2018, 11:23. FINDINGS: Liver: Liver is normal in size and homogeneous in echotexture. Gallbladder: The gall bladder is normal in size without cholelithiasis or evidence of gallbladder wall inflammation. Biliary ducts: Intrahepatic bile ducts are non-dilated. Extrahepatic bile duct caliber measures 4 mm. Normal is 6-7 mm or less in diameter, or 10 mm or less post-cholecystectomy. Pancreas: Visualized portions of the pancreas are sonographically normal. Spleen: Spleen is normal in size and homogeneous in echotexture. Kidneys: Kidneys are normal in size and echotexture. Right kidney measures 9.4 cm long; left kidney measures 10.7 cm long. No hydronephrosis or shadowing nephrolithiasis. No solid masses. Aorta: Visualized aorta is normal in caliber at less than 3 cm. Iliacs: Proximal common iliac arteries are normal in caliber at less than 2.5 cm. IVC: Intrahepatic inferior vena cava is patent. Miscellaneous: No free abdominal fluid. IMPRESSION: 1. No acute abnormality is appreciated. 2. No cholelithiasis. 3. No hydronephrosis. Dictated by: Yogesh Santana M.D. on 07/07/2018 at 13:55 Approved by: Yogesh Santana M.D. on 07/07/2018 at 13:56
[2018-07-07 16:00] VITALS: BP 118/76; PULSE 86; RESP 12; O2SAT 100
== END 2018-07-07 16:01 | disposition home or self-care (01) ==
PROVIDERS: Emergency Provider Emergency Medicine; Family Provider Registered Nurse Diabetes Educator; PCP Registered Nurse Diabetes Educator
DX: R10.9 Unspecified abdominal pain (principal); R74.8 Abnormal levels of other serum enzymes
CPT/HCPCS: 36591; 74018; 76700; 80053; 81003; 83690; 85025; 99282; 99284

== ENCOUNTER 2018-10-12 07:57 | Emergency (ER) | payer OTHER, SELFPAY ==
[2018-10-12 08:10] VITALS: BP 99/63; PULSE 66; RESP 18; TEMP 37.1; O2SAT 99; BMI 20.9
--- NOTE | 2018-10-12 08:43 | ED.GENADULT ---
HPI - General Adult General Chief complaint: Upper Respiratory Symptoms Stated complaint: PAIN IN R ELBOW X 1 MONTH Time Seen by Provider: 10/12/18 08:12 Source: patient Mode of arrival: ambulatory Limitations: no limitations History of Present Illness HPI narrative: 38-year-old female here for evaluation of right elbow pain. She states it has been gradually worsening over the past month. Has not tried anything for it in the past. Has had tennis elbow in the past however the symptoms are on the inside of her elbow. No specific trauma. Related Data Home Medications Medication Instructions Recorded Confirmed cetirizine 10 mg PO QDAYP PRN #0 07/30/17 05/12/18 omeprazole 20 mg PO QDAY #0 07/30/17 05/12/18 cyclobenzaprine 1 tab PO PRN PRN 05/12/18 05/12/18 ibuprofen 800 mg PO PRN PRN 05/12/18 05/12/18 levothyroxine [Synthroid] 25 mcg PO DAILY 05/12/18 05/12/18 pseudoephedrine HCl [Sudafed] 1 tab PO PRN PRN 05/12/18 05/12/18 Allergies Allergy/AdvReac Type Severity Reaction Status Date / Time ciprofloxacin [From CIPRO] Allergy Severe Dizziness Verified 10/12/18 08:13 shrimp [SHRIMP] Allergy Severe Anaphylaxis Verified 10/12/18 08:13 Sulfa (Sulfonamide Allergy Severe Vomiting Verified 10/12/18 08:13 Antibiotics) [SULFA (SULFONAMIDE ANTIBIOTICS)] latex [LATEX] Allergy Intermediate RASH Verified 10/12/18 08:13 nitrofurantoin Allergy Verified 10/12/18 08:13 [From Macrobid] EGGS Allergy Intermediate Uncoded 10/12/18 08:13 AVACADO Allergy Unknown Uncoded 10/12/18 08:13 Review of Systems Constitutional Denies fever(s) and Reports weakness (Some weakness with grasping of the right hand) ENT Ears, Nose, Mouth, and Throat: Denies disequilibrium Gastrointestinal Gastrointestinal: Denies abdominal pain Musculoskeletal Reports tingling Comments: Right elbow pain Integumentary/Breasts Denies rash Neurologic Reports tingling, Denies paresthesias, Denies disequilibrium and Reports weakness (Some weakness with grasping of the right hand) Hematologic/Lymphatic Comments: Not on blood thinners PFSH Social History marital status: Smoking Status: Never smoker Exam Initial Vital Signs Initial Vital Signs: Vital Signs Temperature 98.7 F 10/12/18 08:10 Pulse Rate 66 10/12/18 08:10 Respiratory Rate 18 10/12/18 08:10 Blood Pressure 99/63 10/12/18 08:10 Pulse Oximetry 99 10/12/18 08:10 Const General: cooperative, healthy appearing, comfortable, well developed and No acute distress Orientation: alert, awake and oriented x3 HENMT Head: normal to inspection and normocephalic Resp Effort & Inspection: normal respiratory effort Cardio Rate: regular rate Pulses: radial pulses present GI Inspection: non-distended Palpation: soft Skin Lesions: no lesions Rashes: no rashes Neuro General: alert, awake and oriented x3 Sensory Exam: no sensory deficits noted Extrem Other: Tenderness to palpation over the right medial epicondyle. I did feel the tendon flip over the medial epicondyle with movement of the arm. She states that is what brought her in and that is the cause of her symptoms Psych Appearance: grossly normal and well kempt Course Vital Signs - 8 hr 10/12/18 08:10 Temperature 98.7 F Pulse Rate 66 Respiratory Rate 18 Blood Pressure 99/63 Pulse Oximetry 99 Medical Decision Making MDM Narrative Medical decision making narrative: Patient is neurovascularly intact. Does have tenderness over the medial epicondyle the right upper extremity. I also feel the tendon flipping over the medial epicondyle. Feel that this is the cause of her symptoms. Will hold on x-rays for now. Patient was given instructions on how to care for this. She was given return precautions. She expressed understanding and agreement with plan. Discharge Plan Departure Patient Disposition: Home Clinical Impression: Epicondylitis elbow, medial Qualifiers: Laterality: right Qualified Code(s): M77.01 - Medial epicondylitis, right elbow Instructions: DI for Medial Epicondylitis Activity Restrictions/Additional Instructions: Keep all of your scheduled medical appointments. You can take Tylenol/Naprosyn for any discomfort. Ice the area as much as possible. Return to the emergency department for any new or worsening symptoms Prescriptions: No Action cetirizine 10 MG tablet 10 mg PO QDAYP PRN (Reason: Allergy Symptoms) Qty: 0 RF: 0 omeprazole 20 MG capsule,delayed release(DR/EC) 20 mg PO QDAY Qty: 0 RF: 0 levothyroxine [Synthroid] 50 mcg tablet 25 mcg PO DAILY RF: 0 ibuprofen 200 mg Tablet 800 mg PO PRN PRN (Reason: pain) RF: 0 pseudoephedrine HCl [Sudafed] 30 mg Tablet 1 tab PO PRN PRN (Reason: Congestion) RF: 0 cyclobenzaprine 1 tab PO PRN PRN (Reason: Spasms) RF: 0 Referrals: Singh Petty CNP [Primary Care Provider] -
[2018-10-12 09:33] VITALS: BP 99/63; PULSE 66; RESP 18; TEMP 37.1; O2SAT 99; BMI 20.9
== END 2018-10-12 08:50 | disposition home or self-care (01) ==
PROVIDERS: Emergency Provider Emergency Medicine; Family Provider Registered Nurse Diabetes Educator; PCP Registered Nurse Diabetes Educator
DX: M77.01 Medial epicondylitis, right elbow (principal)
CPT/HCPCS: 99282

== ENCOUNTER 2019-01-04 08:25 | Emergency (ER) | payer OTHER, SELFPAY ==
[2019-01-04 08:38] VITALS: BP 115/63; PULSE 86; RESP 15; TEMP 36.8; O2SAT 98; BMI 21.5
[2019-01-04 08:51] LABS: Appearance Urine UA CLEAR; Bilirubin Urine UA NEGATIVE (NEGATIVE); Color Urine UA YELLOW; Glucose Urine UA NEGATIVE (Negative); Ketones Urine UA NEGATIVE (NEGATIVE); Leukocyte Esterase Urine UA 1+ (NEGATIVE); Nitrite Urine UA NEGATIVE (Negative); Occult Blood Urine UA TRACE-LYSED (Negative); Protein Urine UA NEGATIVE (Negative); Urobilinogen Urine UA 0.2 E.U./dL (0.2); pH Urine UA 7.5 (4.5-8.0)
[2019-01-04 09:03] LABS: Bacteria Urine Moderate (10-30); RBC Urine 0-1/HPF (0-5/HPF); Squamous Epithelial Cell Urine 10-30 /HPF (0-5/HPF); WBC Urine 5-10/HPF (0-5/HPF)
[2019-01-04 09:04] LABS: Culture Indicated Urine Cult Not Indicated
--- NOTE | 2019-01-04 09:55 | ED.FEMALEGU ---
HPI - Female Genitourinary General Chief complaint: Urogenital-Female Stated complaint: Difficulty peeing,smells like sewage Time Seen by Provider: 01/04/19 09:24 Source: patient Mode of arrival: ambulatory Limitations: no limitations History of Present Illness HPI Narrative: Patient complains of suprapubic pain and states it feels as though ?a kidney stone is stuck in my urethra?. Patient states that she has been having pain in the area since September, and that that time, she thought she had a urinary tract infection, so she took antibiotics. She states that the dysuria went away, but that she continued to have a suprapubic pain. Patient has not noticed any roxanne blood, but has noticed an orange appearance of her urine, and wonders if this is blood. Patient denies fevers that have been measured, though she does feel as though she has had a possible fever for the last couple of days. She states she gets chills at night. Patient states she has had urinary urgency, but that she does not feel she is urinating as much as she should for the amount of fluid she has been drinking. Patient denies any history of kidney failure. She has a history of kidney stones, she states, and states this feels the same. Patient denies any dysuria this time, but does note foul-smelling urine today. No other complaints at this time. Related Data Home Medications Medication Instructions Recorded Confirmed cetirizine 10 mg PO QDAYP PRN #0 07/30/17 05/12/18 omeprazole 20 mg PO QDAY #0 07/30/17 05/12/18 cyclobenzaprine 1 tab PO PRN PRN 05/12/18 05/12/18 ibuprofen 800 mg PO PRN PRN 05/12/18 05/12/18 levothyroxine [Synthroid] 25 mcg PO DAILY 05/12/18 05/12/18 pseudoephedrine HCl [Sudafed] 1 tab PO PRN PRN 05/12/18 05/12/18 Previous Rx's Medication Instructions Recorded cephalexin 500 mg PO QID #28 cap 01/04/19 Allergies Allergy/AdvReac Type Severity Reaction Status Date / Time ciprofloxacin [From CIPRO] Allergy Severe Dizziness Verified 01/04/19 08:43 shrimp [SHRIMP] Allergy Severe Anaphylaxis Verified 01/04/19 08:43 Sulfa (Sulfonamide Allergy Severe Vomiting Verified 01/04/19 08:43 Antibiotics) [SULFA (SULFONAMIDE ANTIBIOTICS)] latex [LATEX] Allergy Intermediate RASH Verified 01/04/19 08:43 nitrofurantoin Allergy Verified 01/04/19 08:43 [From Macrobid] EGGS Allergy Intermediate Uncoded 01/04/19 08:43 AVACADO Allergy Unknown Uncoded 01/04/19 08:43 Review of Systems Constitutional Denies chills, Denies fever(s), Denies lethargy and Denies weakness Eyes Denies change in vision, Denies eye discharge, Denies irritation and Denies loss of vision ENT Ears, Nose, Mouth, and Throat: Denies change in voice, Denies neck pain and Denies sore throat Cardiovascular Denies chest pain, Denies irregular heart rhythm, Denies lightheadedness, Denies palpitations, Denies dyspnea, Denies dyspnea on exertion and Denies orthopnea Respiratory Denies cough, Denies dyspnea, Denies dyspnea on exertion and Denies wheezing Gastrointestinal Gastrointestinal: Reports abdominal pain (Suprapubic), Denies change in bowel habits, Denies diarrhea, Denies nausea and Denies vomiting Genitourinary Denies hematuria, Denies flank pain, Denies urinary incontinence and Denies urinary urgency Musculoskeletal Denies neck pain Integumentary/Breasts Denies pruritus, Denies erythema, Denies rash and Denies wounds Neurologic Denies confusion, Denies loss of vision and Denies weakness Psychiatric Denies anxiety, Denies confusion, Denies depression, Denies homicidal ideation and Denies suicidal ideation Endocrine Denies palpitations Hematologic/Lymphatic Denies easy bruising Allergic/Immunologic Denies wheezing [facility] Medical History Gastroesophageal reflux disease (Acute) Hypothyroid (Acute) Surgical History No pertinent past surgical history (Acute) Social History (Updated 07/07/18 @ 15:41 by Tonny Dunn DO) marital status: Smoking Status: Never smoker Social History marital status: Smoking Status: Never smoker Exam Initial Vital Signs Initial Vital Signs: Vital Signs Temperature 98.2 F 01/04/19 08:38 Pulse Rate 86 01/04/19 08:38 Respiratory Rate 15 01/04/19 08:38 Blood Pressure 115/63 01/04/19 08:38 Pulse Oximetry 98 01/04/19 08:38 Const General: cooperative and well developed Nutritional Appearance: well nourished Orientation: alert, awake, oriented x3 and not confused [facility] Head: normocephalic and atraumatic Ears: external ears normal and TM's normal bilaterally Nose: external nose normal and No nasal discharge Face and sinus: sinuses nontender, face symmetric, no sinus tenderness and No dry mucous membranes Mouth: oral mucosae normal and moist mucous membranes Teeth and gingiva: dentition normal Throat: tonsils normal and uvula midline Eyes General: appearance normal, both eyes and all related structures Eyelids: eyelids normal Conjunctivae: conjunctivae normal Sclera: sclerae normal Pupils: PERRL EOM: EOM intact bilaterally Neck Neck: normal visual inspection, trachea midline, No lymphadenopathy, No midline deformity and No JVD Lymphatic: No lymphedema Chest Chest: normal inspection of the chest Resp Effort & Inspection: normal respiratory effort, able to speak in complete sentences, no respiratory distress and no use of accessory muscles Auscultation: clear to auscultation bilaterally, no rales, no rhonchi and no wheezes Cardio Rate: regular rate Rhythm: regular rhythm Heart Sounds: no click, no gallops, no murmurs and no rubs Pulses: normal peripheral pulses GI Inspection: non-distended Palpation: soft, no hepatosplenomegaly, No guarding, No pulsatile mass and tender (Suprapubic, moderate, no rebound) Auscultation: normal bowel sounds Back/Spine/Pelvis Back: No CVA tenderness Cervical Spine: cervical ROM normal and No pain with cervical ROM Thoracic/Lumbar Spine: thoracic and lumbar spine normal to inspection Skin General: no rashes or lesions noted, No jaundice and No petechiae Neuro General: alert, oriented x3, gait normal and no focal motor deficits Speech: speech normal Extrem General: full ROM, no clubbing, cyanosis or edema, no pedal edema and no calf tenderness Psych Appearance: well kempt Mental Status: mental status grossly normal Attitude: cooperative Thought Content: normal and suicidality Judgment: judgment good Course Course Narrative: Patient was worked up with urinalysis, bladder scan, and CT KUB. Urine was contaminated, but did come up positive for potential infection, which was consistent with the patient's symptoms. CT KUB was unremarkable. The patient was treated with antibiotics. She was informed that she does not have any stones in her urinary tract any level. We have discussed home management of symptoms, as well as the usual indications for return. Orders Ordered: Discontinued Medications Ceftriaxone Sodium (Rocephin) 2,000 mg IM NOW ONE Stop: 01/04/19 11:52 Last Admin: 01/04/19 12:30 Dose: 2,000 mg Vital Signs - 8 hr 01/04/19 08:38 Temperature 98.2 F Pulse Rate 86 Respiratory Rate 15 Blood Pressure 115/63 Pulse Oximetry 98 MDM - Female Genitourinary Medical Records Attestation: I reviewed the patient's medical records. Lab Data Attestation: I reviewed the patient's lab results. Lab Results 01/04/19 Range/Units 08:45 Urine Color Yellow Urine Appearance Clear Urine pH 7.5 (4.5-8.0) Ur Specific [place] 1.020 (1.000-1.035) Urine Protein Negative (Negative) Urine Glucose (UA) Negative (Negative) g/dL Urine Ketones Negative (NEGATIVE) Urine Occult Blood Trace-lysed (Negative) Urine Nitrate Negative (Negative) Urine Bilirubin Negative (NEGATIVE) Urine Urobilinogen 0.2 (0.2) E.U./dL Ur Leukocyte Esterase 1+ H (NEGATIVE) Urine RBC 0-1/hpf (0-5/HPF) Urine WBC 5-10/hpf H (0-5/HPF) Ur Squamous Epith Cells 10-30 /hpf H (0-5/HPF) Urine Bacteria Moderate (10-30) H (None) Ur Culture Indicated? Cult not indicated Point of Care Testing Test Results Negative Imaging Data CT scan - abdomen: Radiologist's impression: PROCEDURE: CT KIDNEY URETER BLADDER (KUB) INDICATIONS: flank/suprapubic pain, h/o stones TECHNIQUE: Noncontrast 5 mm thick sections acquired from the diaphragms to the symphysis. 5 mm thick coronal and sagittal reformats were then performed. For radiation dose reduction, the following was used: automated exposure control, adjustment of mA and/or kV according to patient size. COMPARISON: None. FINDINGS: Image quality: Excellent. Lung bases: Lung bases are clear. Heart size is normal. Urinary system: Both kidneys are normal in size. No kidney stones. No hydronephrosis or perinephric fat stranding. Both ureters appear non-dilated throughout their expected courses. Bladder wall thickness is normal; no calcified bladder stones. Other solid organs: Liver is normal in size. Gallbladder unremarkable. Pancreas is normal in contours. Spleen is normal in size. No adrenal nodules. Peritoneum and bowel: Unenhanced bowel loops demonstrate normal wall thickness and caliber. No free fluid or air. The appendix is within normal limits Rectum is grossly unremarkable Nodes and vessels: No retroperitoneal or mesenteric adenopathy by size criteria. Aorta and inferior vena cava are normal in caliber. Abdominal wall: No ventral hernias. Pelvis: No free pelvic fluid. No inguinal hernias or adenopathy. Incidental IUD noted Bones: No suspicious bony lesions. No vertebral body compression fractures. IMPRESSION: No acute process identified. No urolithiasis. No evidence of urinary obstruction. Normal appendix. Dictated by: Rishabh Armijo M.D. on 01/04/2019 at 10:12 Approved by: Rishabh Armijo M.D. on 01/04/2019 at 10:16 Discharge Plan Departure Patient Disposition: Home Clinical Impression: UTI (urinary tract infection) Qualifiers: Urinary tract infection type: acute cystitis Hematuria presence: without hematuria Qualified Code(s): N30.00 - Acute cystitis without hematuria Discharge Date/Time: 01/04/19 13:06 Interventions: ED Discharge Assessment Last Done: 01/04/19 13:05 Instructions: DI for Urinary Tract Infection (UTI) Activity Restrictions/Additional Instructions: Your CT scan was normal, and showed no evidence of a kidney stone. Urinalysis was positive for infection, despite being mildly contaminated with cells from the outside of your body. You have been started on antibiotics for this. If you're still having symptoms after you have taken all the antibiotics, then you will need to follow up with gynecology for further evaluation. Prescriptions: New cephalexin 500 mg capsule 500 mg PO QID Qty: 28 RF: 0 No Action cetirizine 10 MG tablet 10 mg PO QDAYP PRN (Reason: Allergy Symptoms) Qty: 0 RF: 0 omeprazole 20 MG capsule,delayed release(DR/EC) 20 mg PO QDAY Qty: 0 RF: 0 levothyroxine [Synthroid] 50 mcg tablet 25 mcg PO DAILY RF: 0 ibuprofen 200 mg Tablet 800 mg PO PRN PRN (Reason: pain) RF: 0 pseudoephedrine HCl [Sudafed] 30 mg Tablet 1 tab PO PRN PRN (Reason: Congestion) RF: 0 cyclobenzaprine 1 tab PO PRN PRN (Reason: Spasms) RF: 0 Referrals: Singh Petty CNP [Primary Care Provider] -
--- NOTE | 2019-01-04 09:58 | DI.CT.S_ITS ---
PROCEDURE: CT KIDNEY URETER BLADDER (KUB) INDICATIONS: flank/suprapubic pain, h/o stones TECHNIQUE: Noncontrast 5 mm thick sections acquired from the diaphragms to the symphysis. 5 mm thick coronal and sagittal reformats were then performed. For radiation dose reduction, the following was used: automated exposure control, adjustment of mA and/or kV according to patient size. COMPARISON: None. FINDINGS: Image quality: Excellent. Lung bases: Lung bases are clear. Heart size is normal. Urinary system: Both kidneys are normal in size. No kidney stones. No hydronephrosis or perinephric fat stranding. Both ureters appear non-dilated throughout their expected courses. Bladder wall thickness is normal; no calcified bladder stones. Other solid organs: Liver is normal in size. Gallbladder unremarkable. Pancreas is normal in contours. Spleen is normal in size. No adrenal nodules. Peritoneum and bowel: Unenhanced bowel loops demonstrate normal wall thickness and caliber. No free fluid or air. The appendix is within normal limits Rectum is grossly unremarkable Nodes and vessels: No retroperitoneal or mesenteric adenopathy by size criteria. Aorta and inferior vena cava are normal in caliber. Abdominal wall: No ventral hernias. Pelvis: No free pelvic fluid. No inguinal hernias or adenopathy. Incidental IUD noted Bones: No suspicious bony lesions. No vertebral body compression fractures. IMPRESSION: No acute process identified. No urolithiasis. No evidence of urinary obstruction. Normal appendix. Dictated by: Rishabh Armijo M.D. on 01/04/2019 at 10:12 Approved by: Rishabh Armijo M.D. on 01/04/2019 at 10:16
[2019-01-04 11:47] VITALS: BP 115/69; PULSE 75; RESP 15; O2SAT 98
[2019-01-04] MEDS: cefTRIAXone 2,000 MG VIAL 2000 MG IM (12:30)
[2019-01-04 13:05] VITALS: BP 122/75; PULSE 65; RESP 18; O2SAT 96
== END 2019-01-04 13:06 | disposition home or self-care (01) ==
PROVIDERS: Emergency Provider Emergency Medicine; Family Provider Registered Nurse Diabetes Educator; PCP Registered Nurse Diabetes Educator
DX: N30.00 Acute cystitis without hematuria (principal)
CPT/HCPCS: 74176; 81001; 81025; 96372; 99282; 99284; J0696

== ENCOUNTER 2019-07-21 07:50 | Emergency (ER) | payer OTHER, SELFPAY ==
[2019-07-21 07:56] VITALS: BP 140/74; PULSE 82; RESP 14; TEMP 36.7; O2SAT 96; BMI 20.4
--- NOTE | 2019-07-21 08:28 | ED_ITS ---
HPI - Head Injury General Chief complaint: Head Injury Stated complaint: hit head on pole,eye hurts to look up,headache Time Seen by Provider: 07/21/19 08:26 Source: patient Mode of arrival: Ambulatory History of Present Illness HPI Narrative: 38-year-old woman ran into a metal pole sustaining injury to the left side of her lutheran yesterday. No loss of consciousness no laceration immediate pain and over the course of the evening pain has continued including left retro-orbital pain and mild nausea. Does not describe and unsafe living environment and does not describe any assault. No evidence to suggest intimate partner violence in the setting Related Data Home Medications Medication Instructions Recorded Confirmed cetirizine 10 mg PO QDAYP PRN #0 07/30/17 05/12/18 omeprazole 20 mg PO QDAY #0 07/30/17 05/12/18 cyclobenzaprine 1 tab PO PRN PRN 05/12/18 05/12/18 ibuprofen 800 mg PO PRN PRN 05/12/18 05/12/18 levothyroxine [Synthroid] 25 mcg PO DAILY 05/12/18 05/12/18 pseudoephedrine HCl [Sudafed] 1 tab PO PRN PRN 05/12/18 05/12/18 ergocalciferol (vitamin D2) 50,000 unit PO QWEEK 07/21/19 07/21/19 Allergies Allergy/AdvReac Type Severity Reaction Status Date / Time ciprofloxacin [From CIPRO] Allergy Severe Dizziness Verified 07/21/19 07:55 shrimp [SHRIMP] Allergy Severe Anaphylaxis Verified 07/21/19 07:55 Sulfa (Sulfonamide Allergy Severe Vomiting Verified 07/21/19 07:55 Antibiotics) [SULFA (SULFONAMIDE ANTIBIOTICS)] latex [LATEX] Allergy Intermediate RASH Verified 07/21/19 07:55 nitrofurantoin Allergy Verified 07/21/19 07:55 [From Macrobid] EGGS Allergy Intermediate Uncoded 07/21/19 07:55 AVACADO Allergy Unknown Uncoded 07/21/19 07:55 Review of Systems Review of Systems ROS Unobtainable: All systems reviewed & are unremarkable except as noted in HPI and below Patient History Social History marital status: Smoking Status: Never smoker alcohol intake frequency: a few times a month Substance Use Type: does not use Exam Narrative Exam Narrative: General: Healthy appearing, moderate distress with some left lutheran pain, Able to give a complete and full history cooperative. Well- nourished well-developed HEENT: Moist mucous membranes, normal sclera with reactive pupils, funduscopic exam on the left side, area pain, is unremarkable with no evidence of hemorrhage, equal extraocular eye movement Neck: No JVD, supple Respiratory: Lungs are clear to auscultation, no wheezing no rales no rhonchi. Full and symmetrical air movement Cardiac: Regular rate and rhythm no murmurs no bruits Abdomen: Soft nontender good bowel tones, no flank pain Skin: Warm and dry, no rashes Neurologic: Grossly neurologically intact with no obvious asymmetries or abnormalities Extremities: No trauma, well perfused Psych: appropriate insight and affect Initial Vital Signs Initial Vital Signs: Vital Signs Temperature 98.1 F 07/21/19 07:56 Pulse Rate 82 07/21/19 07:56 Respiratory Rate 14 07/21/19 07:56 Blood Pressure 140/74 07/21/19 07:56 Pulse Oximetry 96 07/21/19 07:56 Course Course Course Narrative: Presents with severe headache after hitting the left temporal side of her head on a post yesterday. CT scan is unremarkable. Exam and presentation are most consistent with concussion there is no evidence of intracranial hemorrhage or skull fracture. Will treat with nonsteroidals. Concussion precautions and instructions will be given. Patient is safe for home discharge Orders Ordered: Discontinued Medications Acetaminophen (Tylenol) 325 mg PO NOW ONE Stop: 07/21/19 10:49 Last Admin: 07/21/19 10:53 Dose: 325 mg Documented by: SOLITARIO Ibuprofen (Advil) 400 mg PO NOW ONE Stop: 07/21/19 10:48 Last Admin: 07/21/19 10:53 Dose: 400 mg Documented by: SOLITARIO Reevaluation(s) Reevaluation #1: Patient reexamined. Certainly not worse. Reassurance is given with results of CT scan chair. Discussed concussion as well as precautions. S afe to use ibuprofen and Tylenol for pain. She declined any nausea medication for home use. Safe for home discharge Vital Signs Vital signs: Vital Signs - 8 hr 07/21/19 11:07 Pulse Rate 64 Respiratory Rate 16 Blood Pressure 123/68 Pulse Oximetry 98 MDM - Head Injury Imaging Data CT scan - head: Radiologist's impression: IMPRESSION: No acute intracranial abnormality. Dictated by: Radha Banda M.D. on 07/21/2019 at 9:11 Discharge Plan Departure Patient Disposition: Home Clinical Impression: Concussion without loss of consciousness Discharge Date/Time: 07/21/19 11:14 Instructions: Concussion Activity Restrictions/Additional Instructions: Thank you for coming in today. you clearly hit your head hard enough that this evaluation was appropriate Fortunately, your head CT was very reassuring. There is no evidence of bleeding inside the brain, no skull fractures, and no trauma to the area around your eyeball. Time will help but I would not be surprised if you're still having more symptoms tomorrow. I would recommend 2 etak-bgg-nbnjokv ibuprofen (400 mg) and 1 Tylenol every 6 hours to help with pain. You might find ice is helpful with the actual head pain. You will need to rest, including resting your brain as much as possible for the next couple of days. I hope you feel better soon Prescriptions: No Action cetirizine 10 MG tablet 10 mg PO QDAYP PRN (Reason: Allergy Symptoms) Qty: 0 RF: 0 omeprazole 20 MG capsule,delayed release(DR/EC) 20 mg PO QDAY Qty: 0 RF: 0 levothyroxine [Synthroid] 50 mcg tablet 25 mcg PO DAILY RF: 0 ibuprofen 200 mg Tablet 800 mg PO PRN PRN (Reason: pain) RF: 0 pseudoephedrine HCl [Sudafed] 30 mg Tablet 1 tab PO PRN PRN (Reason: Congestion) RF: 0 cyclobenzaprine 1 tab PO PRN PRN (Reason: Spasms) RF: 0 ergocalciferol (vitamin D2) 50,000 unit capsule 50,000 unit PO QWEEK RF: 0 Referrals: Singh Petty CNP [Primary Care Provider] - Stand Alone Forms: Work Release Note
--- NOTE | 2019-07-21 08:48 | DI.CT.S_ITS ---
PROCEDURE: CT HEAD/BRAIN WO CON INDICATIONS: head trauma, pain, headace TECHNIQUE: Noncontrast 4.5 mm thick angled axial sections acquired from the foramen magnum to the vertex, with coronal and sagittal reformats. For radiation dose reduction, the following was used: automated exposure control, adjustment of mA and/or kV according to patient size. COMPARISON: None. FINDINGS: Image quality: Excellent. CSF spaces: Basal cisterns are patent. No extra-axial fluid collections. Ventricles are normal in size and shape. Brain: No midline shift. No intracranial masses or hemorrhage. Varghese-white matter interface is normal. Skull and face: Calvarium and visualized facial bones are intact, without suspicious lesions. Sinuses: Visualized sinuses and mastoids are clear. IMPRESSION: No acute intracranial abnormality. Dictated by: Radha Banda M.D. on 07/21/2019 at 9:11 Approved by: Radha Banda M.D. on 07/21/2019 at 9:13
[2019-07-21 10:23] VITALS: BP 110/68; PULSE 70; RESP 14; O2SAT 98
[2019-07-21] MEDS: ACETAMINOPHEN 325 MG TABLET PO (10:53)
[2019-07-21] MEDS: IBUPROFEN 400 MG TABLET PO (10:53)
[2019-07-21 11:07] VITALS: BP 123/68; PULSE 64; RESP 16; O2SAT 98
== END 2019-07-21 11:14 | disposition home or self-care (01) ==
PROVIDERS: Emergency Provider Emergency Medicine; Family Provider Registered Nurse Diabetes Educator; PCP Registered Nurse Diabetes Educator
DX: S06.0X0A Concussion without loss of consciousness, initial encounter (principal); W22.8XXA Striking against or struck by other objects, initial encounter
CPT/HCPCS: 70450; 99283; 99284

== ENCOUNTER 2019-07-25 11:07 | Emergency (ER) | payer OTHER, SELFPAY ==
[2019-07-25 11:28] VITALS: BP 111/75; PULSE 74; RESP 18; TEMP 37.1; O2SAT 96; BMI 20.4
--- NOTE | 2019-07-25 12:09 | ED.RECABL ---
HPI - Recheck/Abnormal Lab/Rx General Chief Complaint: Recheck/Abnormal Lab/Rx Stated Complaint: returning for worsening symptons of concussion Time Seen by Provider: 07/25/19 12:07 Source: patient Mode of arrival: Ambulatory History of Present Illness HPI narrative: Patient is a 38-year-old female with prior head injury. She said last week she walked into a pole hitting her head no loss of consciousness, she was seen and evaluated here the following day on 07/21/2019. She had blood work and head CT. Discharged home with concussion syndrome. Since then she has felt sensitive to light she has had headaches she has been persistently nauseous no vomiting. She is trying to drink but sometimes not able to. She is extremely sensitive to light. She states that she has been having trouble with short-term memory which is concerning to her. She is not able to look at her phone or wtch TV for long periods of time. Related Data Home Medications Medication Instructions Recorded Confirmed cetirizine 10 mg PO QDAYP PRN #0 07/30/17 05/12/18 omeprazole 20 mg PO QDAY #0 07/30/17 05/12/18 cyclobenzaprine 1 tab PO PRN PRN 05/12/18 05/12/18 ibuprofen 800 mg PO PRN PRN 05/12/18 05/12/18 levothyroxine [Synthroid] 25 mcg PO DAILY 05/12/18 05/12/18 pseudoephedrine HCl [Sudafed] 1 tab PO PRN PRN 05/12/18 05/12/18 ergocalciferol (vitamin D2) 50,000 unit PO QWEEK 07/21/19 07/21/19 Allergies Allergy/AdvReac Type Severity Reaction Status Date / Time ciprofloxacin [From CIPRO] Allergy Severe Dizziness Verified 07/25/19 11:33 shrimp [SHRIMP] Allergy Severe Anaphylaxis Verified 07/25/19 11:33 Sulfa (Sulfonamide Allergy Severe Vomiting Verified 07/25/19 11:33 Antibiotics) [SULFA (SULFONAMIDE ANTIBIOTICS)] latex [LATEX] Allergy Intermediate RASH Verified 07/25/19 11:33 nitrofurantoin Allergy Verified 07/25/19 11:33 [From Macrobid] EGGS Allergy Intermediate Uncoded 07/21/19 07:55 AVACADO Allergy Unknown Uncoded 07/21/19 07:55 Review of Systems Review of Systems ROS Unobtainable: All systems reviewed & are unremarkable except as noted in HPI and below Constitutional Constitutional: Denies chills, Denies fever(s), Denies lethargy and Denies weakness Eyes Eyes: Reports eye pain (Pain behind left eye) and Reports photophobia ENT Ears, Nose, Mouth, and Throat: Denies change in voice, Denies neck pain and Denies sore throat Cardiovascular Cardiovascular: Denies chest pain, Denies irregular heart rhythm, Denies lightheadedness, Denies palpitations, Denies dyspnea, Denies dyspnea on exertion and Denies orthopnea Respiratory Respiratory: Denies cough, Denies dyspnea, Denies dyspnea on exertion and Denies wheezing Gastrointestinal Gastrointestinal: Denies abdominal pain, Denies change in bowel habits, Denies diarrhea, Reports nausea and Denies vomiting Musculoskeletal Musculoskeletal: Denies neck pain Integumentary/Breasts Skin/Breast: Denies pruritus, Denies erythema, Denies rash and Denies wounds Neurologic Neurologic: Denies weakness Endocrine Endocrine: Denies palpitations Allergic/Immunologic Allergic/Immunologic: Denies wheezing Patient History Medical History Gastroesophageal reflux disease (Acute) Hypothyroid (Acute) Surgical History No pertinent past surgical history (Acute) Social History marital status: Smoking Status: Never smoker Smoking Status: Never smoker alcohol intake frequency: a few times a month Substance Use Type: does not use Exam Initial Vital Signs Initial Vital Signs: Vital Signs Temperature 98.7 F 07/25/19 11:28 Pulse Rate 74 07/25/19 11:28 Respiratory Rate 18 07/25/19 11:28 Blood Pressure 111/75 07/25/19 11:28 Pulse Oximetry 96 07/25/19 11:28 GENERAL: Alert young female wearing sunglasses HEENT: Head atraumatic,EOMI, pupils reactive, face symmetric, dry mucous membranes CARDIOVASCULAR: Regular rate and rhythm without murmurs, rubs or gallops. RESPIRATORY: Breath sounds equal bilaterally, no wheezes rales or rhonchi. ABDOMEN: Soft, nontender. Normoactive bowel sounds all 4 quadrants. No guarding or rebound. : No CVA tenderness EXTREMITIES: Normal range of motion, no clubbing or edema. Neurovascularly intact NEUROLOGICAL: Alert and oriented x4.Normal gait and speech. Cranial nerves II through XII grossly intact. [employer] strength equal bilaterally SKIN: Warm, dry, no laceration, no petechiae, no rashes or lesions. Scores NIH Stroke Scale Level of Conciousness: Alert, keenly responsive Ask month/age: Answers both questions correctly. Open/close eyes, close hand: Performs both tasks correctly Best gaze horizontal: Normal Visual de león: No visual loss Facial palsy: Normal symetrical movement Left arm drift: No drift for full 10 sec Right arm drift: No drift for full 10 sec Left leg drift: No drift for full 10 sec Right leg drift: No drift for full 10 sec Limb ataxia: Absent Sensory on face/arms/legs: Normal, no sensory loss Best language: No aphasia, normal Dysarthria: Normal Extinction or inattention: No abnormality Total NIH Stroke scale score: 0 Course Orders Ordered: Discontinued Medications Sodium Chloride (Normal Saline 0.9%) 1,000 mls @ 1,000 mls/hr IV BOLUS ONE Stop: 07/25/19 13:29 Last Infusion: 07/25/19 13:35 Dose: 0 mls/hr Documented by: Admin: 07/25/19 12:53 Dose: 1,000 mls/hr Documented by: ALFONSO Ketorolac Tromethamine (Toradol) 30 mg IV NOW ONE Stop: 07/25/19 12:31 Last Admin: 07/25/19 12:50 Dose: 30 mg Documented by: ALFONSO Ondansetron HCl (Zofran) 4 mg IV NOW ONE Stop: 07/25/19 12:31 Last Admin: 07/25/19 12:49 Dose: 4 mg Documented by: ALFONSO Vital Signs Vital signs: Vital Signs - 8 hr 07/25/19 11:28 07/25/19 13:23 Temperature 98.7 F Pulse Rate 74 70 Respiratory Rate 18 17 Blood Pressure 111/75 Blood Pressure [Left Arm] 104/62 Pulse Oximetry 96 100 MDM - Recheck/Abnormal Lab/Rx MDM Narrative Medical decision making narrative: The patient is feeling a little better after Toradol and IV fluids along with Zofran. She says she has a history of vertigo for which she takes meclizine for the which typically helps she was not sure if she could take the meclizine with her signs and symptoms. I do recommend that she take the meclizine as needed. She has concussion syndrome. At this time no indication for repeat imaging initial imaging was negative. Recommend follow up with her PCP she has an appointment for this week already. Discharge Plan Departure Patient Disposition: Home Clinical Impression: Concussion syndrome Discharge Date/Time: 07/25/19 14:21 Instructions: DI for Postconcussion Syndrome Activity Restrictions/Additional Instructions: 1. No sports activity for at least 2 weeks or until cleared by primary care physician, contact in 2-3 days for follow up appointment. -Avoids high-risk/ high-speed activities such as riding a bicycle , playing sports, climbing or rides that could result in another bump, blow, or jolt to the head or body.. 2. Brain imaging (CT or MRI) was not done today because it was not clinically indicated. However, youd may experience headache,nausea, sleep disturbance. 3. Use Tylenol and/or ibuprofen for pain/discomfort. *Ibuprofen 800 mg every 8 hours if needed for [id number] pain *Tylenol/acetaminophen 1000 mg every 6 hours if needed for [id number] pain do not exceed more than 4000 mg in 24 hours 4. Get plenty of rest. Keep a regular sleep schedule. Return for seizure, profuse vomiting, or new neurologic abnormalities See 'Head Injury ' info sheets. Prescriptions: No Action cetirizine 10 MG tablet 10 mg PO QDAYP PRN (Reason: Allergy Symptoms) Qty: 0 RF: 0 omeprazole 20 MG capsule,delayed release(DR/EC) 20 mg PO QDAY Qty: 0 RF: 0 levothyroxine [Synthroid] 50 mcg tablet 25 mcg PO DAILY RF: 0 ibuprofen 200 mg Tablet 800 mg PO PRN PRN (Reason: pain) RF: 0 pseudoephedrine HCl [Sudafed] 30 mg Tablet 1 tab PO PRN PRN (Reason: Congestion) RF: 0 cyclobenzaprine 1 tab PO PRN PRN (Reason: Spasms) RF: 0 ergocalciferol (vitamin D2) 50,000 unit capsule 50,000 unit PO QWEEK RF: 0 Referrals: Singh Petty CNP [Primary Care Provider] -
[2019-07-25] MEDS: ONDANSETRON 4 MG/2 ML INJ IV (12:49)
[2019-07-25] MEDS: KETOROLAC 60 MG/2 ML VIAL 30 MG IV (12:50)
[2019-07-25] MEDS: SODIUM CHLORIDE 0.9% 1,000 ML 1000 ML IV (12:53)
[2019-07-25 13:23] VITALS: BP 104/62; PULSE 70; RESP 17; O2SAT 100
--- NOTE | 2019-07-27 08:35 | PC.NURSE ---
Pt called and asked for work note. Printed and sent to her via mail per her request.
== END 2019-07-25 14:21 | disposition home or self-care (01) ==
PROVIDERS: Emergency Provider Emergency Medicine; Family Provider Registered Nurse Diabetes Educator; PCP Registered Nurse Diabetes Educator
DX: S06.0X0D Concussion without loss of consciousness, subsequent encounter (principal)
CPT/HCPCS: 96361; 96374; 96375; 99283; 99284; J1885; J2405

== ENCOUNTER 2019-10-11 17:52 | Emergency (ER) | payer OTHER, SELFPAY ==
[2019-10-11 17:58] VITALS: BP 153/83; PULSE 92; RESP 15; TEMP 37.1; O2SAT 98; BMI 20.5
--- NOTE | 2019-10-11 19:20 | ED.HA ---
HPI - Headache General Chief Complaint: Headache Stated Complaint: states migraine, n/v, difficulty with vision Time Seen by Provider: 10/11/19 18:44 Source: patient Mode of arrival: Ambulatory Limitations: no limitations History of Present Illness HPI Narrative: 39-year-old female here for evaluation of a headache. States on the left side of her head. Is present for the past couple days. She states that is the same headache that she has had since July after she sustained a closed head injury. She states that she has a history of a ?post concussive syndrome ?she has seen her primary doctor for this. Has a referral in to have an MRI. States she has had a left-sided headache since the event in July of stress over the past couple days symptoms have worsened. Is causing photophobia. She states she was concern for head bleed. She states it feels like her ?bubbles? moving on the left side of her head. Related Data Home Medications Medication Instructions Recorded Confirmed cetirizine 10 mg PO QDAYP PRN #0 07/30/17 10/11/19 cyclobenzaprine 1 tab PO PRN PRN 05/12/18 10/11/19 pseudoephedrine HCl [Sudafed] 1 tab PO PRN PRN 05/12/18 10/11/19 acetaminophen 0 mg PO DAILY 10/11/19 10/11/19 ibuprofen 0 mg PO DAILY 10/11/19 10/11/19 ondansetron 4 mg PO Q6H PRN 10/11/19 10/11/19 Allergies Allergy/AdvReac Type Severity Reaction Status Date / Time ciprofloxacin [From CIPRO] Allergy Severe Dizziness Verified 10/11/19 17:58 shrimp [SHRIMP] Allergy Severe Anaphylaxis Verified 10/11/19 17:58 Sulfa (Sulfonamide Allergy Severe Vomiting Verified 10/11/19 17:58 Antibiotics) [SULFA (SULFONAMIDE ANTIBIOTICS)] latex [LATEX] Allergy Intermediate RASH Verified 10/11/19 17:58 nitrofurantoin Allergy Verified 10/11/19 17:58 [From Macrobid] EGGS Allergy Intermediate Uncoded 07/21/19 07:55 AVACADO Allergy Unknown Uncoded 07/21/19 07:55 Review of Systems Constitutional Constitutional: Denies fever(s) and Reports headache(s) Eyes Eyes: Reports photophobia ENT Ears, Nose, Mouth, and Throat: Reports dizziness and Reports headache(s) Cardiovascular Cardiovascular: Denies chest pain and Denies dyspnea Respiratory Respiratory: Denies dyspnea Gastrointestinal Gastrointestinal: Denies abdominal pain, Reports nausea and Denies vomiting Integumentary/Breasts Skin/Breast: Denies lesions and Denies rash Neurologic Neurologic: Denies behavioral changes, Denies confusion, Reports dizziness and Reports headache(s) Psychiatric Psychiatric: Denies behavioral changes and Denies confusion Hematologic/Lymphatic Hematologic/Lymphatic: Denies easy bleeding and Denies easy bruising Patient History Medical History Gastroesophageal reflux disease (Acute) Hypothyroid (Acute) Post concussive syndrome (Acute) Surgical History No pertinent past surgical history (Acute) Social History marital status: Smoking Status: Never smoker Smoking Status: Never smoker alcohol intake frequency: holidays/special occasions only Substance Use Type: does not use Exam Initial Vital Signs Initial Vital Signs: Vital Signs Temperature 98.8 F 10/11/19 17:58 Pulse Rate 92 H 10/11/19 17:58 Respiratory Rate 15 10/11/19 17:58 Blood Pressure 153/83 H 10/11/19 17:58 Pulse Oximetry 98 10/11/19 17:58 Const General: cooperative and comfortable Limitations: mental status not altered HENMT Head: normal to inspection and normocephalic Resp Effort & Inspection: normal respiratory effort Cardio Rate: regular rate Skin Lesions: no lesions Rashes: no rashes Neuro General: alert and awake Cognition: normal cognition Speech: speech normal Extrem General: normal to inspection and capillary refill normal Psych Appearance: grossly normal and well kempt Course Orders Ordered: Discontinued Medications Diphenhydramine HCl (Benadryl) 25 mg IV NOW ONE Stop: 10/11/19 19:24 Last Admin: 10/11/19 20:43 Dose: Not Given Documented by: CRISTOPHER Sodium Chloride (Normal Saline 0.9%) 1,000 mls @ 1,000 mls/hr IV BOLUS ONE Stop: 10/11/19 20:22 Last Infusion: 10/11/19 20:47 Dose: 0 mls/hr Documented by: Admin: 10/11/19 19:50 Dose: 1,000 mls/hr Documented by: CRISTOPHER Ketorolac Tromethamine (Toradol) 30 mg IV NOW ONE Stop: 10/11/19 19:24 Last Admin: 10/11/19 19:51 Dose: 30 mg Documented by: CRISTOPHER Metoclopramide HCl (Reglan) 10 mg IV NOW ONE Stop: 10/11/19 19:24 Last Admin: 10/11/19 19:50 Dose: 10 mg Documented by: CRISTOPHER Vital Signs Vital signs: Vital Signs - 8 hr 10/11/19 21:23 Pulse Rate 78 Respiratory Rate 18 Blood Pressure [Left Arm] 110/68 Pulse Oximetry 98 MDM - Headache MDM Narrative Medical decision making narrative: Patient did report improvement of her symptoms after the medications. She is afebrile. Low suspicion for meningitis. She states is the same headache she has had since July. Will just worsened over the past couple days. They have low suspicion for a subarachnoid hemorrhage. Feel we can hold on a CT scan for now. Unfortunately we unable to obtain a MRI currently. I did inform her that she does needed talk with her primary provider about this. She was given return precautions. She expressed understanding and agreement. Discharge Plan Departure Patient Disposition: Home Clinical Impression: Headache Qualifiers: Headache type: unspecified Headache chronicity pattern: unspecified pattern Intractability: not intractable Qualified Code(s): R51 - Headache Discharge Date/Time: 10/11/19 21:39 Instructions: DI for Headache Activity Restrictions/Additional Instructions: Take all of your medications as directed. Contact your primary provider for follow-up. Return to the emergency department for any new or worsening symptoms Prescriptions: No Action cetirizine 10 MG tablet 10 mg PO QDAYP PRN (Reason: Allergy Symptoms) Qty: 0 RF: 0 pseudoephedrine HCl [Sudafed] 30 mg Tablet 1 tab PO PRN PRN (Reason: Congestion) RF: 0 cyclobenzaprine 1 tab PO PRN PRN (Reason: Spasms) RF: 0 ondansetron 4 mg tablet,disintegrating 4 mg PO Q6H PRN (Reason: Nausea) RF: 0 ibuprofen 100 mg/5 mL Suspension 0 mg PO DAILY RF: 0 acetaminophen 160 mg/5 mL (5 mL) Suspension 0 mg PO DAILY RF: 0 Referrals: Singh Petty CNP [Primary Care Provider] -
[2019-10-11] MEDS: SODIUM CHLORIDE 0.9% 1,000 ML 1000 ML IV (19:50)
[2019-10-11] MEDS: METOCLOPRAMIDE 10 MG/2 ML INJ IV (19:50)
[2019-10-11] MEDS: KETOROLAC 60 MG/2 ML VIAL 30 MG IV (19:51)
[2019-10-11 21:23] VITALS: BP 110/68; PULSE 78; RESP 18; O2SAT 98
== END 2019-10-11 21:39 | disposition home or self-care (01) ==
PROVIDERS: Emergency Provider Emergency Medicine; Family Provider Registered Nurse Diabetes Educator; PCP Registered Nurse Diabetes Educator
DX: R51 Headache (principal)
CPT/HCPCS: 36415; 96361; 96374; 96375; 99284; J1885; J2765

== ENCOUNTER 2020-11-29 15:56 | Emergency (ER) | payer OTHER, SELFPAY ==
[2020-11-29 16:02] VITALS: BP 128/71; PULSE 93; RESP 18; TEMP 36.9; O2SAT 97; BMI 23.0
--- NOTE | 2020-11-29 18:05 | ED_ITS ---
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 this morning. She describes acute onset of sharp pain that was throbbing began at the base of her neck without the right side of her head to her I was associated with acute photophobia and phonophobia dramatically severe for approximately 2 minutes then settled down to approximately 6/10 with continued photophobia, phonophobia and a sensation of fullness over the upper portion of her back. She states that it is slightly different from her usual migraine in that it has a severe throbbing component that she has not experienced before. She notes that she is very sensitive to medications so has not taken any medications for this. She does have a primary care and L&I doctor in [place] and also sees a neurologist. She recently completed a head injury rehab stay and feels that she is improving significantly. She describes no fevers, cough, chills, palpitations, dyspnea, orthopnea, abdominal pain, flank pain, dysuria, vaginal discharge or any acute neurologic symptoms beyond the headache symptoms described. Related Data Home Medications Medication Instructions Recorded Confirmed cetirizine 10 mg PO QDAYP PRN #0 07/30/17 10/11/19 cyclobenzaprine 1 tab PO PRN PRN 05/12/18 10/11/19 pseudoephedrine HCl [Sudafed] 1 tab PO PRN PRN 05/12/18 10/11/19 acetaminophen 0 mg PO DAILY 10/11/19 10/11/19 ibuprofen 0 mg PO DAILY 10/11/19 10/11/19 ondansetron 4 mg PO Q6H PRN 10/11/19 10/11/19 Allergies Allergy/AdvReac Type Severity Reaction Status Date / Time ciprofloxacin [From CIPRO] Allergy Severe Dizziness Verified 10/11/19 17:58 shrimp [SHRIMP] Allergy Severe Anaphylaxis Verified 10/11/19 17:58 Sulfa (Sulfonamide Allergy Severe Vomiting Verified 10/11/19 17:58 Antibiotics) [SULFA (SULFONAMIDE ANTIBIOTICS)] latex [LATEX] Allergy Intermediate RASH Verified 10/11/19 17:58 nitrofurantoin Allergy Verified 10/11/19 17:58 [From Macrobid] EGGS Allergy Intermediate Uncoded 07/21/19 07:55 AVACADO Allergy Unknown Uncoded 07/21/19 07:55 Review of Systems Review of Systems Narrative: Remainder of complete review of systems is otherwise unremarkable except for that included in the HPI Patient History Medical History (Updated 11/29/20 @ 19:57 by Chula Bolden MD) Gastroesophageal reflux disease Hypothyroid Migraine headache Post concussive syndrome Surgical History No pertinent past surgical history Social History marital status: Smoking Status: Never smoker Smoking Status: Never smoker alcohol intake frequency: holidays/special occasions only Substance Use Type: does not use Exam Narrative Exam Narrative: General: Healthy appearing, in no acute distress. Able to give a complete and coherent history. Well-nourished well-developed HEENT: Moist mucous membranes, normal sclera with reactive pupils, Neck: No JVD, supple, muscle spasm open for the upper thoracic spine without warmth, redness. There is no nuchal rigidity. Respiratory: Lungs are clear to auscultation, no wheezing no rales no rhonchi. Full and symmetrical air movement Cardiac: Regular rate and rhythm no murmurs no bruits Abdomen: Soft, nontender, good bowel tones, no flank pain Skin: Warm and dry, no rashes Neurologic: Grossly neurologically intact with no obvious asymmetries or abnormalities Extremities: No trauma, well perfused Psych: Cooperative, appropriate insight and affect Initial Vital Signs Initial Vital Signs: Vital Signs Temperature 98.5 F 11/29/20 16:02 Pulse Rate 93 H 11/29/20 16:02 Respiratory Rate 18 11/29/20 16:02 Blood Pressure 128/71 11/29/20 16:02 Pulse Oximetry 97 11/29/20 16:02 Course Orders Ordered: Discontinued Medications Sodium Chloride (Normal Saline 0.9%) 1,000 mls @ 1,000 mls/hr IV BOLUS ONE Stop: 11/29/20 19:13 Last Admin: 11/29/20 18:47 Dose: 1,000 mls/hr Documented by: KAYLI Ketorolac Tromethamine (Ketorolac 60 Mg/2 Ml Vial) 15 mg IV NOW ONE Stop: 11/29/20 18:15 Last Admin: 11/29/20 18:47 Dose: 15 mg Documented by: KAYLI Metoclopramide HCl (Metoclopramide 10 Mg/2 Ml Inj) 10 mg IV NOW ONE Stop: 11/29/20 18:15 Last Admin: 11/29/20 18:47 Dose: 10 mg Documented by: KAYLI Vital Signs Vital signs: Vital Signs - 8 hr 11/29/20 16:02 Temperature 98.5 F Pulse Rate 93 H Respiratory Rate 18 Blood Pressure 128/71 Pulse Oximetry 97 MDM - Headache MDM Narrative Medical decision making narrative: 40-year-old woman with acute headache resolved nicely with a L of fluid, Toradol and metoclopramide. As the headache has been present for only approximately 4 hours she was not given Decadron. There are no red flags for this current headache to suggest intracranial hemorrhage, meningitis, involving tumors or anything that is causing acute neurologic changes. Most likely explanation is migraine variant. She does have a follow-up scheduled with both her primary care physician and her neurologist. Suggested that she try ibuprofen the next time she develops a headache. She is reluctant to try any medications. Encouraged her to discuss migraine specific medications that might be able to prevent this severe pain and cut down overall on medications used. She is safe for home discharge Discharge Plan Departure Patient Disposition: Home Clinical Impression: Headache Qualifiers: Headache type: unspecified Headache chronicity pattern: acute headache Intractability: not intractable Qualified Code(s): R51.9 - Headache, unspecified Instructions: DI for Migraine Activity Restrictions/Additional Instructions: Thank you for coming in today I do suspect that this is a migraine variant type headache. I do not find any suggestion of infection. You improved nicely with fluids, IV Toradol and IV metoclopramide(a nausea medicine that can work nicely with headaches) With your next headache, using 400 mg of ibuprofen (2 [id number] pills) and 1 Tylenol every 6 hours can be very helpful in controlling pain. Please talk to your neurologist about headache specific medications. Something like Imitrex/sumatriptan may be very helpful for you in controlling headaches and overall requiring less medication use. If things get worse or you develop new symptoms, please feel free to return to the emergency department Prescriptions: No Action cetirizine 10 MG tablet 10 mg PO QDAYP PRN (Reason: Allergy Symptoms) Qty: 0 RF: 0 pseudoephedrine HCl [Sudafed] 30 mg Tablet 1 tab PO PRN PRN (Reason: Congestion) RF: 0 cyclobenzaprine 1 tab PO PRN PRN (Reason: Spasms) RF: 0 ondansetron 4 mg tablet,disintegrating 4 mg PO Q6H PRN (Reason: Nausea) RF: 0 ibuprofen 100 mg/5 mL Suspension 0 mg PO DAILY RF: 0 acetaminophen 160 mg/5 mL (5 mL) Suspension 0 mg PO DAILY RF: 0 Referrals: Singh Petty ARNP [Primary Care Provider] -
[2020-11-29] MEDS: METOCLOPRAMIDE 10 MG/2 ML INJ IV (18:47)
[2020-11-29] MEDS: KETOROLAC 60 MG/2 ML VIAL 15 MG IV (18:47)
[2020-11-29] MEDS: SODIUM CHLORIDE 0.9% 1,000 ML 1000 ML IV (18:47)
[2020-11-29 20:23] VITALS: BP 116/68; PULSE 76; RESP 17; O2SAT 98
== END 2020-11-29 20:24 | disposition home or self-care (01) ==
PROVIDERS: Emergency Provider Emergency Medicine; Family Provider Registered Nurse Diabetes Educator; PCP Registered Nurse Diabetes Educator
DX: R51.9 Headache, unspecified (principal); M54.2 Cervicalgia; Y99.0 Civilian activity done for income or pay
CPT/HCPCS: 36415; 96361; 96374; 96375; 99284; J1885; J2765

== ENCOUNTER → 2021-11-06 09:28 | Outpatient (CLI) | payer OTHER, SELFPAY ==
--- NOTE | 2021-11-06 | DI.MRI.S_ITS ---
PROCEDURE: MR CERVICAL SPINE WO CON INDICATIONS: Cervicalgia TECHNIQUE: Noncontrast sagittal T1 spin echo and T2 fast spin echo, sagittal STIR, foraminal oblique sagittal T2 fast spin echo, and axial gradient echo or T2 fast spin echo through the cervical spine. COMPARISON: [facility] [place], CR, XR CERVICAL SPINE 6+ VIEWS, 10/09/2021, 9:31. FINDINGS: Image quality: Excellent. Alignment and Curvature: There is normal bony alignment. Bone Marrow: Marrow demonstrates normal overall signal. Spinal Cord: Visualized spinal cord has normal size and signal. No cerebellar tonsillar herniation. Paraspinous Soft Tissues: No paravertebral masses. Prevertebral soft tissues are normal in thickness. C2-C3: Normal appearance. C3-C4: Slight loss of disc signal. Mild, diffuse disc bulge. Mild bilateral facet hypertrophy. Mild bilateral uncovertebral joint hypertrophy. Mild right and moderate left neural foraminal narrowing. No neural compression. C4-C5: Loss of disc signal. Mild, diffuse disc bulge. Mild bilateral facet hypertrophy. Moderate right and mild left uncovertebral joint hypertrophy. Severe right and moderate left neural foraminal narrowing with compression of the exiting right C5 nerve root. C5-C6: Loss of disc signal. Mild, diffuse disc bulge. Mild bilateral facet hypertrophy. Moderate right uncovertebral joint hypertrophy. No central stenosis. Moderate right and mild left neural foraminal narrowing. No neural compression. C6-C7: Loss of disc signal. Mild, diffuse disc bulge. Mild bilateral facet hypertrophy. No central stenosis. No neural foraminal narrowing. No neural compression. C7-T1: Normal appearance. IMPRESSION: 1. Multilevel degenerative disc disease. 2. Multilevel facet and uncovertebral arthropathy. 3. No severe central canal narrowing. 4. Severe right C4-C5 neural foraminal narrowing with compression of the exiting right C5 nerve root. Dictated by: Magda Akins MD, PhD on 11/06/2021 at 11:10 Approved by: Magda Akins MD, PhD on 11/06/2021 at 11:17
== END ==
PROVIDERS: Family Provider Registered Nurse Diabetes Educator; Referring Provider Physical Medicine & Rehabilitation Pain Medicine; Visit Provider Physical Medicine & Rehabilitation Pain Medicine
DX: M47.812 Spondylosis without myelopathy or radiculopathy, cervical region (principal); M50.31 Other cervical disc degeneration, high cervical region; M48.02 Spinal stenosis, cervical region
CPT/HCPCS: 72141

== ENCOUNTER → 2022-01-09 13:15 | Outpatient (CLI) | payer OTHER, SELFPAY ==
--- NOTE | 2022-01-09 | DI.MRI.S_ITS ---
PROCEDURE: MR HAND RT WO CON INDICATIONS: Pain in joints of right hand TECHNIQUE: Noncontrast coronal T1 spin echo and T2 fast spin echo with fat saturation, axial proton density fast spin echo and T2 fast spin echo with fat saturation, sagittal T1 spin echo and STIR through the hand and fingers. COMPARISON: [facility], CR, XR HAND 3+ VIEWS RIGHT, 11/26/2021, 9:03. FINDINGS: Image quality: Excellent. Bones: The bones are normally aligned, without marrow contusions or fractures. No intra-osseous lesions. Interphalangeal joint(s): The accessory and proper collateral ligaments appear intact. The volar plate demonstrates normal morphology. The extensor central slips appear intact on sagittal images. Metacarpophalangeal joint(s): The accessory and proper collateral ligaments appear intact, as well as the volar plate and adjacent deep transverse metacarpal ligaments. The sagittal bands of the extensor whaley appear normal. Extensor apparatus: The central slips insert normally on the middle phalangeal base. The conjoint and terminal tendons insert normally on the distal phalangeal bases. More proximal portions of the extensor tendons also appear normal. Flexor apparatus: The flexor digitorum superficialis and profundus tendons both appear intact. All annular and cruciform pulleys appear intact, without adjacent soft tissue edema. Soft tissues: Visualized muscles demonstrate normal bulk and internal signal. No intramuscular masses identified. No ganglion cysts. IMPRESSION: 1. No marrow edema. No fracture or dislocation. Joint spaces are fairly well preserved. No suspicious intraosseous lesion. No bony erosive changes. 2. Visualized right hand and wrist tendons and ligaments are grossly intact. No gross soft tissue abnormality. Dictated by: Tonio Turner M.D. on 01/09/2022 at 16:10 Approved by: Tonio Turner M.D. on 01/10/2022 at 9:10
== END ==
PROVIDERS: Family Provider Registered Nurse Diabetes Educator; PCP Student in an Organized Health Care Education/Training Program; Referring Provider Orthopaedic Surgery; Visit Provider Orthopaedic Surgery
DX: M25.541 Pain in joints of right hand (principal)
CPT/HCPCS: 73218

== ENCOUNTER 2023-04-08 13:22 | Emergency (ER) | payer OTHER, SELFPAY ==
[2023-04-08 13:26] VITALS: BP 141/86; PULSE 90; RESP 18; TEMP 37.1; O2SAT 98; BMI 22.4
--- NOTE | 2023-04-08 14:35 | DI.CT.S_ITS ---
PROCEDURE: CT HEAD/BRAIN WO CON INDICATIONS: dizzy, ONEILL TECHNIQUE: Noncontrast 4.5 mm thick angled axial sections acquired from the foramen magnum to the vertex, with coronal and sagittal reformats. For radiation dose reduction, the following was used: automated exposure control, adjustment of mA and/or kV according to patient size. COMPARISON: [facility], CT, CT HEAD/BRAIN WO CON, 07/21/2019, 8:48. FINDINGS: Image quality: Excellent. CSF spaces: Basal cisterns are patent. No extra-axial fluid collections. Ventricles are normal in size and shape. Brain: No midline shift. No intracranial masses or hemorrhage. Varghese-white matter interface is normal. Skull and face: Calvarium and visualized facial bones are intact, without suspicious lesions. Sinuses: Visualized sinuses and mastoids are clear. IMPRESSION: Unremarkable noncontrast head CT, without a cause of the patient's presenting history identified. If it would be helpful for clinical management decision making, please consider a dedicated, scheduled brain MRI (IAC protocol, without and with contrast) for further evaluation (assuming that there is no contraindication). Dictated by: Harry Coombs M.D. on 04/08/2023 at 13:54 Approved by: Harry Coombs M.D. on 04/08/2023 at 13:55
[2023-04-08 15:59] VITALS: BP 117/72; PULSE 78; O2SAT 99
--- NOTE | 2023-04-08 16:02 | ED.DIZZY ---
HPI - Dizziness General Chief Complaint: Dizziness Stated Complaint: dizzy, falling, eye/head pain, ringing ear Time Seen by Provider: 04/08/23 14:35 Source: patient Mode of arrival: Ambulatory History of Present Illness HPI Narrative: 42-year-old female nonsmoker with history of prior head injury presents with symptoms that remind her of what it felt like when she had a head injury. She states that she has some dizziness and had pain in her central forehead and the top of her head which is how she felt when she had a prior head injury. She denies obvious provocation, palliation or radiation of her symptoms. She does have some ringing in her left ear but denies any significant pain or drainage. She is had no runny nose, sore throat or cough. She denies any recent trauma or injury. She has no neck pain. Related Data Home Medications Medication Instructions Recorded Confirmed cetirizine 10 mg tablet 10 mg PO QDAYP PRN Allergy 07/30/17 10/11/19 Symptoms ##0 cyclobenzaprine 1 tab PO PRN PRN Spasms 05/12/18 10/11/19 pseudoephedrine HCl 30 mg tablet 1 tab PO PRN PRN Congestion 05/12/18 10/11/19 (Sudafed) acetaminophen 160 mg/5 mL (5 mL) 0 mg PO DAILY 10/11/19 10/11/19 oral suspension ibuprofen 100 mg/5 mL oral 0 mg PO DAILY 10/11/19 10/11/19 suspension ondansetron 4 mg disintegrating 4 mg PO Q6H PRN Nausea 10/11/19 10/11/19 tablet Previous Rx's Medication Instructions Recorded meclizine 25 mg tablet 25 mg PO BID-TID PRN dizziness #14 04/08/23 tabs Allergies Allergy/AdvReac Type Severity Reaction Status Date / Time ciprofloxacin [From CIPRO] Allergy Severe Dizziness Verified 10/11/19 17:58 shrimp [SHRIMP] Allergy Severe Anaphylaxis Verified 10/11/19 17:58 Sulfa (Sulfonamide Allergy Severe Vomiting Verified 10/11/19 17:58 Antibiotics) [SULFA (SULFONAMIDE ANTIBIOTICS)] latex [LATEX] Allergy Intermediate RASH Verified 10/11/19 17:58 nitrofurantoin Allergy Verified 10/11/19 17:58 [From Macrobid] EGGS Allergy Intermediate Uncoded 07/21/19 07:55 AVACADO Allergy Unknown Uncoded 07/21/19 07:55 Review of Systems Review of Systems Narrative: GENERAL: See HPI HEENT: See HPI RESPIRATORY: Denies dyspnea, cough, wheezing, hemoptysis, sputum. CARDIOVASCULAR: Denies chest pain, palpitations, orthopnea, edema, GASTROINTESTINAL: Denies nausea, vomiting, abdominal pain, diarrhea, constipation, melena. : Denies dysuria, frequency, incontinence, hematuria, urinary retention. MUSCULOSKELETAL: denies weakness, joint pain, or bony pain SKIN: Denies rash, skin lesions, or other NEUROLOGIC: See HPI PSYCHIATRIC: No concerning psychosocial issues. 12 point review of systems is negative except for those stated above Patient History Medical History Gastroesophageal reflux disease Hypothyroid Migraine headache Post concussive syndrome Surgical History No pertinent past surgical history Social History marital status: Smoking Status: Never smoker Smoking Status: Never smoker alcohol intake frequency: holidays/special occasions only Substance Use Type: does not use Exam Narrative Exam Narrative: GENERAL: [42] year old patient appears stated age. Well-developed patient, in mild distress. HEAD: Atraumatic. Normocephalic. EYES: Pupils equal round and reactive. Extraocular motions intact. No scleral icterus. No injection or drainage. ENT: Nose without bleeding, purulent drainage. Throat without erythema, tonsillar hypertrophy or exudate. Airway patent. NECK: Trachea midline. Non tender CARDIOVASCULAR: Regular rate and rhythm without murmurs, gallops, or rubs. RESPIRATORY: Clear to auscultation. Breath sounds equal bilaterally. No wheezes, rales, or rhonchi. GASTROINTESTINAL: Abdomen soft, non-tender, nondistended. EXTREMITIES: No edema or joint tenderness. BACK: Nontender without deformity or crepitance. No flank tenderness. NEURO: AOx3. SKIN: No rash or erythema of visible areas NIH Stroke Scale 1a. LOC: Patient is alert and keenly responsive (0) 1b. LOC Questions: Patient answers both LOC questions accurately (0) 1c. LOC Commands: Patient performs both tasks correctly (0) 2. Best Gaze: Normal (0) 3. Visual: No visual loss (0) 4. Facial palsy: Normal symmetrical movements (0) 5. Motor arm: No drift (0) 6. Motor leg: No drift (0) 7. Limb ataxia: Absent (0) 8. Sensory: Normal (0) 9. Best language: No aphasia; normal (0) 10. Dysarthria: Normal (0) 11. Extinction and inattention: No abnormality (0) NIHSS: 0 Initial Vital Signs Initial Vital Signs: Vital Signs Temperature 98.8 F 04/08/23 13:26 Pulse Rate 90 04/08/23 13:26 Respiratory Rate 18 04/08/23 13:26 Blood Pressure 141/86 H 04/08/23 13:26 Pulse Oximetry 98 04/08/23 13:26 Oxygen Delivery Method Room Air 04/08/23 13:26 Course Orders Ordered: Discontinued Medications Sodium Chloride (Normal Saline 0.9%) 1,000 mls @ 1,000 mls/hr IV BOLUS ONE Stop: 04/08/23 17:07 Last Admin: 04/08/23 17:03 Dose: 1,000 mls/hr Documented By: ZOEY Vital Signs Vital signs: Vital Signs - 8 hr 04/08/23 13:26 04/08/23 15:59 Temperature 98.8 F Pulse Rate 90 78 Respiratory Rate 18 Blood Pressure 141/86 H 117/72 Pulse Oximetry 98 99 Oxygen Delivery Method Room Air Room Air MDM - Dizziness Lab Data 04/08/23 16:25 04/08/23 16:25 Labs: Lab Results 04/08/23 04/08/23 04/08/23 Range/Units 16:25 16:25 16:25 WBC 8.7 (4.5-11.0) X10^3/uL RBC 4.32 (4.0-5.2) X10^6/uL Hgb 14.0 (12.0-16.0) g/dL Hct 41.5 (36-46) % MCV 96.1 (80-100) fL MCH 32.5 (26-34) PG MCHC 33.8 (30-36) % RDW 14.7 (11.6-14.8) % Plt Count 232 (150-400) X10^3/uL Neut % (Auto) 65.5 (50-75) % Lymph % (Auto) 26.3 (25-40) % [place] % (Auto) 6.6 (3-14) % Eos % (Auto) 1.3 L (2-4) % Baso % (Auto) 0.3 (0-2) % Neut # (Auto) 5700 (2408-7512) /uL Lymph # (Auto) 2300 (9528-6144) /uL [place] # (Auto) 600 (0-900) /uL Eos # (Auto) 100 (0-450) /uL Baso # (Auto) 0 (0-100) /uL PT 11.6 (10.1-12.7) SECONDS INR 1.0 (0.9-1.3) APTT 30 (26-36) SECONDS Sodium 138 (137-145) mmol/L Potassium 3.7 (3.4-5.1) mmol/L Chloride 106 (98-107) mmol/L Carbon Dioxide 26 (22-32) mmol/L BUN 9 (7-17) mg/dL Creatinine 0.57 (0.52-1.04) mg/dL Estimated GFR > 60 (>60) mL/min BUN/Creatinine Ratio 15.8 (6-22) Glucose 95 (70-100) mg/dL Calcium 9.1 (8.4-10.2) mg/dL Total Bilirubin 0.7 (0.2-1.3) mg/dL AST 23 (14-36) IU/L ALT 15 (<35) IU/L Alkaline Phosphatase 43 (38-126) U/L Total Creatine Kinase 39 (30-135) U/L Troponin I < 0.012 (0.01-0.034) ng/mL Total Protein 8.0 (6.3-8.2) g/dL Albumin 4.6 (3.5-5.0) g/dL Globulin 3.4 (1.7-4.1) g/dL Albumin/Globulin Ratio 1.4 (1.0-2.8) Urine Color Urine Appearance Urine pH (4.5-8.0) Ur Specific [place] (1.000-1.035) Urine Protein (Negative) Urine Glucose (UA) (Negative) g/dL Urine Ketones (NEGATIVE) Urine Occult Blood (Negative) Urine Nitrate (Negative) Urine Bilirubin (NEGATIVE) Urine Urobilinogen (0.2) E.U./dL Ur Leukocyte Esterase (NEGATIVE) Urine RBC (0-5/HPF) Urine WBC (0-5/HPF) Ur Squamous Epith Cells (0-5/HPF) Urine Bacteria (None) Ur Culture Indicated? U Opiates 300ng/mL cut (Negative) Ur Oxycodone Screen (Negative) Urine Methadone Screen (Negative) Ur Barbiturates Screen (Negative) U Tricyclic Antidepress (Negative) Ur Phencyclidine Scrn (Negative) Ur Amphetamines Screen (Negative) U Methamphetamines Scrn (Negative) Ur MDMA Scrn (Ecstasy) (Negative) U Benzodiazepines Scrn (Negative) Urine Cocaine Screen (Negative) U Marijuana (THC) Screen (Negative) Ethyl Alcohol < 10 ( - 10) mg/dL SARS-CoV-2 (PCR) (Negative) 04/08/23 04/08/23 04/08/23 Range/Units 16:29 16:29 16:45 WBC (4.5-11.0) X10^3/uL RBC (4.0-5.2) X10^6/uL Hgb (12.0-16.0) g/dL Hct (36-46) % MCV (80-100) fL MCH (26-34) PG MCHC (30-36) % RDW (11.6-14.8) % Plt Count (150-400) X10^3/uL Neut % (Auto) (50-75) % Lymph % (Auto) (25-40) % [place] % (Auto) (3-14) % Eos % (Auto) (2-4) % Baso % (Auto) (0-2) % Neut # (Auto) (3229-2647) /uL Lymph # (Auto) (9806-5186) /uL [place] # (Auto) (0-900) /uL Eos # (Auto) (0-450) /uL Baso # (Auto) (0-100) /uL PT (10.1-12.7) SECONDS INR (0.9-1.3) APTT (26-36) SECONDS Sodium (137-145) mmol/L Potassium (3.4-5.1) mmol/L Chloride (98-107) mmol/L Carbon Dioxide (22-32) mmol/L BUN (7-17) mg/dL Creatinine (0.52-1.04) mg/dL Estimated GFR (>60) mL/min BUN/Creatinine Ratio (6-22) Glucose (70-100) mg/dL Calcium (8.4-10.2) mg/dL Total Bilirubin (0.2-1.3) mg/dL AST (14-36) IU/L ALT (<35) IU/L Alkaline Phosphatase (38-126) U/L Total Creatine Kinase (30-135) U/L Troponin I (0.01-0.034) ng/mL Total Protein (6.3-8.2) g/dL Albumin (3.5-5.0) g/dL Globulin (1.7-4.1) g/dL Albumin/Globulin Ratio (1.0-2.8) Urine Color Yellow Urine Appearance Clear Urine pH 5.0 (4.5-8.0) Ur Specific [place] 1.010 (1.000-1.035) Urine Protein Negative (Negative) Urine Glucose (UA) Negative (Negative) g/dL Urine Ketones Negative (NEGATIVE) Urine Occult Blood Negative (Negative) Urine Nitrate Negative (Negative) Urine Bilirubin Negative (NEGATIVE) Urine Urobilinogen 0.2 (0.2) E.U./dL Ur Leukocyte Esterase Negative (NEGATIVE) Urine RBC None seen (0-5/HPF) Urine WBC None seen (0-5/HPF) Ur Squamous Epith Cells 10-30 /hpf H (0-5/HPF) Urine Bacteria None seen (None) Ur Culture Indicated? Cult not indicated U Opiates 300ng/mL cut Negative (Negative) Ur Oxycodone Screen Negative (Negative) Urine Methadone Screen Negative (Negative) Ur Barbiturates Screen Negative (Negative) U Tricyclic Antidepress Negative (Negative) Ur Phencyclidine Scrn Negative (Negative) Ur Amphetamines Screen Negative (Negative) U Methamphetamines Scrn Negative (Negative) Ur MDMA Scrn (Ecstasy) Negative (Negative) U Benzodiazepines Scrn Negative (Negative) Urine Cocaine Screen Negative (Negative) U Marijuana (THC) Screen Positive H (Negative) Ethyl Alcohol ( - 10) mg/dL SARS-CoV-2 (PCR) Negative (Negative) Point of Care Testing Test Results Negative Urine Dip Bedside Urine Glucose Negative Bedside Urine Bilirubin - Negative Bedside Urine Ketone - Negative Urine Specific [place] 1.015 Bedside Urine Occult Blood - Negative Bedside Urine pH 6.0 Bedside Urine Protein - Negative Bedside Urine Urobilinogen - Negative Bedside Urine Nitrite - Negative Bedside Urine Leukocytes - Negative Esterase MDM Narrative Medical decision making narrative: CC: 42-year-old female with a few days of dizziness, head pain and ringing in her ear Complicating co-morbidities: Prior head injury Data collected from: Patient Medical records reviewed: Prior notes reviewed in our EMR Differential considered, but not limited to: Cardiac etiology versus intracranial hemorrhage versus electrolyte abnormality versus peripheral vertigo versus other Exam documented above, pertinent findings include: Cranial nerves 2-12 grossly intact, NIH stroke scale negative, heart rate regular, lungs clear, tympanic membranes clear bilaterally, no effusion noted Lab Test results independently reviewed as above. Pertinent findings: No leukocytosis or left shift, no signs of anemia, normal electrolytes, troponin negative, renal function negative Independently reviewed EKG as above Imaging studies independently reviewed: CT of head unremarkable Scores Used: NIHSS Treatments: Saline Re-evaluations: Complete resolution of symptoms after above-stated therapies Discussion: Patient presents with reproducible dizziness and concerns of symptoms similar to prior head injury though she denies any recent injury. Her exam is very reassuring she had a complete resolution of symptoms with fluids. Labs are unremarkable, imaging without acute findings Disposition: see below, along with detailed discharge instructions that have been reviewed with patient as well as indications for ED re-evaluation and additional outpatient follow up Discharge Plan Departure Patient Disposition: Home Clinical Impression: Dizziness Instructions: DI for Dizziness-Nonvertigo Activity Restrictions/Additional Instructions: *You have been diagnosed with [dizziness. As we discussed your imaging and labs are very reassuring] *What to do: *Please continue to take your regular medications as directed. [ x] New medication prescriptions sent to your pharmacy: [DOD ] [ ] New medication written as a paper prescription [ ] No new medications given *Please follow up with your primary care provider in 2-3 days, call for an appointment. Let them know you were seen in the Emergency Department and that we ask that you be seen in follow up. We will electronically transmit a record of today's note if your PCP is in our system *If you do not have a primary care provider please contact the [facility] Resource line at [phone]. They will ask some questions about your medical history and help get you set up with a doctor in the community. *Return to Emergency Department if you should have any new, worsening or concerning symptoms, such as [fever greater than 101 F, shaking chills, worsening pain, persistent vomiting or other bothersome symptoms] Prescriptions: New meclizine 25 mg tablet 25 mg PO BID-TID PRN (Reason: dizziness) Qty: 14 0RF No Action cetirizine 10 MG tablet 10 mg PO QDAYP PRN (Reason: Allergy Symptoms) Qty: 0 pseudoephedrine HCl [Sudafed] 30 mg Tablet 1 tab PO PRN PRN (Reason: Congestion) cyclobenzaprine 1 tab PO PRN PRN (Reason: Spasms) Patient Comments: has on hand ondansetron 4 mg tablet,disintegrating 4 mg PO Q6H PRN (Reason: Nausea) ibuprofen 100 mg/5 mL Suspension 0 mg PO DAILY Patient Comments: patient states takes with liquid tylenol acetaminophen 160 mg/5 mL (5 mL) Suspension 0 mg PO DAILY Patient Comments: patient states takes together with Ibuprofen Referrals: Tracy Leon MD [Primary Care Provider] - Stand Alone Forms: Patient Portal/API
--- NOTE | 2023-04-08 16:09 | DI.CT.S_ITS ---
PROCEDURE: CT ANGIO HEAD AND NECK INDICATIONS: dizziness TECHNIQUE: After the administration of intravenous contrast, 1 mm thick sections acquired from the aortic arch through the [place]. 3-dimensional meotvak-wwyvzisev-osivgmylof (MIP) and/or volume rendering reformats were acquired of the central intracranial vasculature and neck separately. For radiation dose reduction, the following was used: automated exposure control, adjustment of mA and/or kV according to patient size. COMPARISON: [facility], CT, CT HEAD/BRAIN WO CON, 07/21/2019, 8:48. [facility], CT, CT HEAD/BRAIN WO CON, 04/08/2023, 14:46. FINDINGS: Image quality: Diagnostic. BRAIN: CSF spaces: Ventricles are normal in size and shape. Basal cisterns are patent. No extra-axial fluid collections. Brain: No significant abnormality of the brain can be seen. Skull and face: Calvarium and facial bones appear intact, without suspicious lesions. Orbits appear normal. Sinuses: Sinuses and mastoids are clear. HEAD CT ANGIOGRAPHY: Anterior circulation: Intracranial internal carotid arteries are normal in size and flow. The flow within the paired anterior cerebral arteries is normal and symmetric. The flow within the middle cerebral arteries is normal and symmetric. The anterior communicating artery is seen. No aneurysms are seen. Posterior circulation: Visualized portions of the vertebral arteries demonstrate normal caliber, and join to form a normal appearing basilar artery. Flow within the posterior cerebral arteries is normal and symmetric. No aneurysms are seen. NECK CT ANGIOGRAPHY: Carotid system: The great vessels demonstrate a conventional anatomy as they arise from the aortic arch. The origins of the common carotid arteries appear patent. The common carotid arteries demonstrate normal caliber and courses. The bifurcation regions are both widely patent. The internal carotid arteries demonstrate normal calibers and courses. Posterior circulation: The origins of the vertebral arteries both appear widely patent. The more superior extracranial portions of both vertebral arteries also demonstrate normal courses and calibers. They join to form a normal appearing basilar artery. Soft tissues: Visualized neck soft tissues demonstrate no suspicious abnormalities. Bones: No suspicious bony lesions. Visualized cervical spine appears normally aligned. IMPRESSION: Within the arteries of the neck, no hemodynamically significant stenosis can be seen. No findings of dissection are seen. No significant intracranial arterial abnormality is seen. Any quantitative measurements of stenosis were performed using NASCET criteria. Dictated by: Harry Coombs M.D. on 04/08/2023 at 15:52 Approved by: Harry Coombs M.D. on 04/08/2023 at 15:53
[2023-04-08 16:33] LABS: Add Manual Diff / Slide Review NO; Basophils Absolute Auto 0 /uL (0-100); Basophils Percent Auto 0.3 % (0-2); Eosinophils Absolute Auto 100 /uL (0-450); Eosinophils Percent Auto 1.3 % (2-4); Hematocrit 41.5 % (36-46); Lymphocytes Absolute Auto 2300 /uL (1100-4500); Lymphocytes Percent Auto 26.3 % (25-40); Mean Corpuscular HGB Conc 33.8 % (30-36); Mean Corpuscular Hemoglobin 32.5 PG (26-34); Mean Corpuscular Volume 96.1 fL (80-100); Monocytes Absolute Auto 600 /uL (0-900); Monocytes Percent Auto 6.6 % (3-14); Neutrophils Absolute Auto 5700 /uL (1500-7000); Neutrophils Percent Auto 65.5 % (50-75); Platelet Count 232 X10^3/uL (150-400); Red Blood Cell Count 4.32 X10^6/uL (4.0-5.2); Red Cell Distribution Width 14.7 % (11.6-14.8); White Blood Cell Count 8.7 X10^3/uL (4.5-11.0)
[2023-04-08 16:40] LABS: Prothrombin Time 11.6 SECONDS (10.1-12.7)
[2023-04-08 16:43] LABS: PTT Partial Thromboplastin Tim 30 SECONDS (26-36)
[2023-04-08 16:45] LABS: Alanine Aminotransferase 15 IU/L (<35); Albumin 4.6 g/dL (3.5-5.0); Albumin Globulin Ratio 1.4 (1.0-2.8); Alkaline Phosphatase 43 U/L (38-126); Aspartate Aminotransferase 23 IU/L (14-36); BUN Creatinine Ratio 15.8 (6-22); Bilirubin Total 0.7 mg/dL (0.2-1.3); Blood Urea Nitrogen 9 mg/dL (7-17); Calcium 9.1 mg/dL (8.4-10.2); Carbon Dioxide 26 mmol/L (22-32); Chloride 106 mmol/L (98-107); Creatine Kinase 39 U/L (30-135); Estimated Glomerular Filt Rate > 60 mL/min (>60); Ethanol (ETOH) < 10 mg/dL; Globulin 3.4 g/dL (1.7-4.1); Glucose 95 mg/dL (70-100); HEMOLYSIS 39 (0-50); Potassium 3.7 mmol/L (3.4-5.1); Sodium 138 mmol/L (137-145)
[2023-04-08 16:50] LABS: Appearance Urine UA CLEAR; Bilirubin Urine UA NEGATIVE (NEGATIVE); Color Urine UA YELLOW; Glucose Urine UA NEGATIVE (Negative); Ketones Urine UA NEGATIVE (NEGATIVE); Leukocyte Esterase Urine UA NEGATIVE (NEGATIVE); Nitrite Urine UA NEGATIVE (Negative); Occult Blood Urine UA NEGATIVE (Negative); Protein Urine UA NEGATIVE (Negative); Urobilinogen Urine UA 0.2 E.U./dL (0.2)
[2023-04-08 16:51] LABS: Ur Creatinine Normal (Normal); Ur Specific Gravity Normal (Normal); Urine pH Normal (Normal)
[2023-04-08 16:52] LABS: UR Morphine/Opiate cutoff 300 Negative (Negative); Urine Amphetamines Negative (Negative); Urine Barbiturates Negative (Negative); Urine Benzodiazepines Negative (Negative); Urine Cocaine Negative (Negative); Urine MDMA Negative (Negative); Urine Methadone Negative (Negative); Urine Methamphetamines Negative (Negative); Urine Oxycodone Negative (Negative); Urine Phencyclidine Negative (Negative); Urine Tetrahydrocannabinol Positive (Negative); Urine Tricyclic Antidepressant Negative (Negative)
[2023-04-08 16:54] LABS: Bacteria Urine None Seen; Culture Indicated Urine Cult Not Indicated; RBC Urine None Seen (0-5/HPF); Squamous Epithelial Cell Urine 10-30 /HPF (0-5/HPF); WBC Urine None Seen (0-5/HPF)
[2023-04-08 16:56] LABS: Troponin I < 0.012 ng/mL (0.01-0.034)
[2023-04-08] MEDS: SODIUM CHLORIDE 0.9% 1,000 ML 1000 ML IV (17:03)
[2023-04-08 17:04] LABS: COVID19 -Nasal RAPID Negative (Negative)
[2023-04-08 17:41] VITALS: BP 114/72; PULSE 72; RESP 18; O2SAT 99
== END 2023-04-08 17:43 | disposition home or self-care (01) ==
PROVIDERS: Emergency Provider Emergency Medicine; Family Provider Registered Nurse Diabetes Educator; PCP Student in an Organized Health Care Education/Training Program
DX: R42 Dizziness and giddiness (principal); H93.12 Tinnitus, left ear; R51.9 Headache, unspecified; Z20.822 Contact with and (suspected) exposure to COVID-19
CPT/HCPCS: 36415; 70450; 70496; 70498; 80053; 80305; 80320; 81001; 81003; 81025; 82550; 84484; 85025; 85610; 85730; 87635; 99284; C9803; Q9967

== ENCOUNTER 2024-07-19 09:51 | Emergency (ER) | payer OTHER, SELFPAY ==
--- NOTE | 2024-07-19 10:02 | ED.ABDPAIN ---
HPI - Abdominal Pain General Chief Complaint: Abdominal Pain Stated Complaint: Stomach pain. fever when she has a bowel movement Time Seen by Provider: 07/19/24 10:00 Source: patient, RN notes reviewed and old records reviewed Mode of arrival: Ambulatory Limitations: no limitations History of Present Illness HPI narrative: 43-year-old female with a history of prior head injury, hypothyroidism, prior episodes of colitis who presents with complaint of abdominal pain for about 3 weeks. Patient states any time she eats or about to have a bowel movement she has a lot of pain. When she was about to have a bowel movement she states gets a fever gets sweaty and checks her temperature is about 100 F. she states she has had nausea no active vomiting. No chest pain or shortness of breath. She states stools have varied between diarrhea and constipated. She states today was little bit green and looked like bile. She states it hurts throughout her abdomen but a little bit more on her right side when she was about to have a bowel movement. She notes a little bit of mild right flank pain but notes most of her pain is anteriorly right greater than left. Patient has noted some dysuria urgency and frequency for the past several weeks as well. She states she started having little bit of vaginal bleeding today she does get irregular bleeding and does have an IUD in place. Patient's does not appreciate any new discharge. She notes weight loss over the last several weeks. States her intake food has been minimal because it worsens her symptoms. Patient states she stopped taking her levothyroxine, Zofran and meclizine couple weeks ago she started having issues. These are her only regular medications. She has had a prior tubal ligation, has had a prior colonoscopy in her 30s when she had episodes of colitis she states it was negative. She states she has a lot of food allergies as well as allergy to Cipro and sulfa. No tobacco, no regular alcohol, no recreational drugs. She was accompanied by her . Related Data Home Medications Medication Instructions Recorded Confirmed cetirizine 10 mg tablet 10 mg PO QDAYP PRN Allergy 07/30/17 10/11/19 Symptoms ##0 cyclobenzaprine 1 tab PO PRN PRN Spasms 05/12/18 10/11/19 pseudoephedrine HCl 30 mg tablet 1 tab PO PRN PRN Congestion 05/12/18 10/11/19 (Sudafed) acetaminophen 160 mg/5 mL (5 mL) 0 mg PO DAILY 10/11/19 10/11/19 oral suspension ibuprofen 100 mg/5 mL oral 0 mg PO DAILY 10/11/19 10/11/19 suspension ondansetron 4 mg disintegrating 4 mg PO Q6H PRN Nausea 10/11/19 10/11/19 tablet Previous Rx's Medication Instructions Recorded meclizine 25 mg tablet 25 mg PO BID-TID PRN dizziness #14 04/08/23 tabs prednisone 10 mg tablets in a dose See Rx Instructions PO .COMPLEX 07/19/24 pack #21 ea tramadol 50 mg tablet 50 mg PO Q6H PRN pain #10 tabs 07/19/24 Allergies Allergy/AdvReac Type Severity Reaction Status Date / Time ciprofloxacin [From CIPRO] Allergy Severe Dizziness Verified 07/19/24 10:16 shrimp [SHRIMP] Allergy Severe Anaphylaxis Verified 07/19/24 10:16 Sulfa (Sulfonamide Allergy Severe Vomiting Verified 07/19/24 10:16 Antibiotics) [SULFA (SULFONAMIDE ANTIBIOTICS)] latex [LATEX] Allergy Intermediate RASH Verified 07/19/24 10:16 nitrofurantoin Allergy Verified 07/19/24 10:16 [From Macrobid] EGGS Allergy Intermediate Uncoded 07/19/24 10:16 AVACADO Allergy Unknown Uncoded 07/19/24 10:16 Review of Systems Review of Systems ROS Unobtainable: All systems reviewed & are unremarkable except as noted in HPI and below Patient History Medical History Migraine headache Post concussive syndrome Hypothyroid Gastroesophageal reflux disease Surgical History No pertinent past surgical history Social History marital status: Smoking Status: Never smoker Smoking Status: Never smoker alcohol intake frequency: holidays/special occasions only Substance Use Type: does not use Exam Narrative Exam Narrative: GENERAL: Alert and oriented x three, mild distress HEENT: Head normocephalic, atraumatic, EOMI, pupils reactive, face symmetric, moist mucous membranes NECK: Supple, full range of motion CARDIOVASCULAR: Regular rate and rhythm without murmurs, rubs or gallops. RESPIRATORY: Breath sounds equal bilaterally, no wheezes rales or rhonchi. ABDOMEN: Soft, generalized tenderness patient was little bit more tender in the left lower quadrant than the right although she notes pain is more intense on the right side. Normoactive bowel sounds all 4 quadrants. No guarding or rebound, rigidity, no mass : No CVA tenderness bilaterally EXTREMITIES: Normal range of motion, no clubbing or edema. Neurovascularly intact NEUROLOGICAL: Cranial nerves II through XII grossly intact. Moving all extremities SKIN: Warm, dry, no petechiae, no rashes or lesions. Initial Vital Signs Initial Vital Signs: Vital Signs Temperature 98.2 F 07/19/24 10:16 Pulse Rate 114 H 07/19/24 10:16 Respiratory Rate 18 07/19/24 10:16 Blood Pressure 175/85 H 07/19/24 10:16 Pulse Oximetry 100 07/19/24 10:16 Oxygen Delivery Method Room Air 07/19/24 10:16 Course Orders Ordered: Discontinued Medications Methylprednisolone (Methylprednisolone 125 Mg/2 Ml Vial) 60 mg IV NOW ONE Stop: 07/19/24 12:42 Last Admin: 07/19/24 12:54 Dose: 60 mg Documented By: PATRICIO Vital Signs Vital signs: Vital Signs - 8 hr 07/19/24 11:18 07/19/24 11:30 07/19/24 11:30 Pulse Rate 89 88 Blood Pressure 135/72 Pulse Oximetry 98 97 07/19/24 12:00 07/19/24 12:00 07/19/24 12:30 Pulse Rate 93 H Blood Pressure 135/86 132/81 Pulse Oximetry 96 07/19/24 12:30 Pulse Rate 89 Blood Pressure Pulse Oximetry 97 MDM - Abdominal Pain Lab Data 07/19/24 10:11 07/19/24 10:11 Labs: Lab Results 07/19/24 07/19/24 Range/Units 09:56 10:11 WBC 7.4 (4.5-11.0) X10^3/uL RBC 4.83 (4.0-5.2) X10^6/uL Hgb 15.7 (12.0-16.0) g/dL Hct 46.9 H (36-46) % MCV 97.1 (80-100) fL MCH 32.4 (26-34) PG MCHC 33.4 (30-36) % RDW 14.8 (11.6-14.8) % Plt Count 242 (150-400) X10^3/uL Neut % (Auto) 71.1 (50-75) % Lymph % (Auto) 20.3 L (25-40) % Mccone % (Auto) 7.7 (3-14) % Eos % (Auto) 0.6 L (2-4) % Baso % (Auto) 0.3 (0-2) % Neut # (Auto) 5200 (6147-8721) /uL Lymph # (Auto) 1500 (8899-9003) /uL Mccone # (Auto) 600 (0-900) /uL Eos # (Auto) 0 (0-450) /uL Baso # (Auto) 0 (0-100) /uL Sodium 136 L (137-145) mmol/L Potassium 3.6 (3.4-5.1) mmol/L Chloride 106 (98-107) mmol/L Carbon Dioxide 19 L (22-32) mmol/L BUN 11 (7-17) mg/dL Creatinine 0.71 (0.52-1.04) mg/dL Estimated GFR > 60 (>60) mL/min BUN/Creatinine Ratio 15.5 (6-22) Glucose 123 H (70-100) mg/dL Calcium 9.4 (8.4-10.2) mg/dL Total Bilirubin 0.9 (0.2-1.3) mg/dL AST 28 (14-36) IU/L ALT 17 (<35) IU/L Alkaline Phosphatase 61 (38-126) U/L Total Protein 8.4 H (6.3-8.2) g/dL Albumin 4.7 (3.5-5.0) g/dL Globulin 3.7 (1.7-4.1) g/dL Albumin/Globulin Ratio 1.3 (1.0-2.8) Lipase 202 (23-300) U/L TSH 3.10 (0.47-4.68) uIU/mL Urine RBC None seen (0-5/HPF) Urine WBC 1-5/hpf (0-5/HPF) Ur Squamous Epith Cells 5-10 /hpf H (0-5/HPF) Urine Bacteria Moderate (10-30) H (None) Ur Culture Indicated? Cult not indicated Vol Urine Centrifuged 10ml (spun) Point of care testing: Point of Care Testing Test Results Negative Urine Dip Bedside Urine Glucose Negative Bedside Urine Bilirubin - Negative Bedside Urine Ketone +++ 80 Urine Specific [place] 1.010 Bedside Urine Occult Blood + Bedside Urine pH 6.0 Bedside Urine Protein - Negative Bedside Urine Urobilinogen - Negative Bedside Urine Nitrite - Negative Bedside Urine Leukocytes - Negative Esterase Imaging Data CT scan - abdomen/pelvis: Radiologist's Impression: Zunilda Richards??43??F??1980 ? Allergy/Adv: ciprofloxacin, shrimp, Sulfa (Sulfonamide Antibiotics), latex, nitrofurantoin, [EGGS], [AVACADO] (More??) Close Abdomen/Pelvis CT (Signed) Ami Cordero - 07/19/24 Head/Neck CTA (Signed) Harry Coombs - 04/08/[address] (Signed) Harry Coombs - 04/08/23 Hand MRI (Signed) Tonio Turner - 01/09/22 Cervical Spine MRI (Signed) Magda Akins - 11/06/[address] (Signed) VeronikaNydiatayler - 07/21/19 Abdomen/Pelvis CT (Signed) Rishabh Armijo - 01/04/19 Abdomen Ultrasound (Signed) Yogesh Santana - 07/07/18 Abdomen X-Ray (Signed) Yogesh Santana - 07/07/18 Abdomen/Pelvis CT (Signed) Yogesh Santana - 05/12/18 Finger X-Ray (Signed) Satnam Joe - 04/15/18 [place] [address] CT Scan Report Signed Patient: Zunilda Richards MR#: [id number] : 1980 Acct:[id number] Age/Sex: 43 / F Date of Service: 07/19/24 Loc: Accession Number: [id number] Procedure: CT abdomen pelvis w con Ordering Provider: Alyssa Jurado D.O. PROCEDURE: CT ABDOMEN PELVIS W CON INDICATIONS: abd pain, R>L, hx colitis, mild R flank x 3wks TECHNIQUE: After the administration of intravenous contrast, axial sections acquired from the lung bases to the pubic symphysis. Coronal and sagittal reformats were performed. For radiation dose reduction, the following was used: automated exposure control, adjustment of mA and/or kV according to patient size. COMPARISON: [facility], CT, CT KIDNEY URETER BLADDER (KUB), 01/04/2019, 10:01. [facility], CT, CT ABDOMEN PELVIS W CON, 05/12/2018, 11:23. FINDINGS: Image quality: Diagnostic. Lower Chest: No significant findings. ABDOMEN: Liver: No solid mass. Gallbladder: No radiopaque gallstones or wall thickening. Biliary ducts: No biliary dilation. Pancreas: No ductal dilation. Spleen: Size is within normal limits. Adrenal Glands: No adrenal nodules. Kidneys and Ureters: No hydronephrosis. No solid mass. No complex renal cystic lesion which requires follow up. Simple right renal cyst. Stomach and Bowel: There is a diffuse appearance of colonic thickening with mild inflammatory change. It is most severe in the right and transverse colon. No appreciable diverticular present. Peritoneum: No abnormal intraperitoneal fluid. No free air. Ventral Wall: Trace fat containing ventral hernia. Abdominal Nodes: No retroperitoneal or mesenteric adenopathy by size criteria. Vessels: Aorta and inferior vena cava are normal in size. PELVIS: Pelvic Organs: IUD is present. Bladder: No bladder wall thickening, accounting for underdistention. Pelvic Nodes: No enlarged lymph nodes. Miscellaneous: No inguinal hernias are seen. Bones: No aggressive osseous abnormality. 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 No abscess. No perforation. Dictated by: Ami Cordero M.D. on 07/19/2024 at 10:51 Approved by: Ami Cordero M.D. on 07/19/2024 at 11:03 [facility] Narrative Medical decision making narrative: 43-year-old female prior history of hypothyroidism, colitis, tubal ligation and a UD who presents with complaint of abdominal pain for several weeks describes right greater than left, little bit of right flank pain. She also noticed some dysuria urgency and frequency but also has increased pain with bowel movements or when she eats. Has had a prior colonoscopy in her 30s which was negative after having episodes of colitis. Patient does note she is stopped taking her home medications couple weeks ago as well. Labs show white count of 7.4 hemoglobin of 15 platelets of 242, sodium 136 potassium of 3.6 chloride of 106 CO2 of 19 BUN 11 creatinine of 0.71, glucose of 123 LFTs are negative total protein is 8.4 lipase is 202, TSH is 3.1 Urine positive for ketones, negative nitrates and leukocyte esterase. 1-5 white cells 5-[address] abdomen pelvis diffuse colonic wall thickening suggestive of pancolitis likely secondary to inflammation or infection no abscess or perforation trace fat containing ventral hernia. Spoke with patient, reviewed her findings. After discussion what suspect potentially more inflammatory pancolitis rather than infectious. We will try a short course of oral prednisone as she has had worsening symptoms over several weeks. She was to follow up with primary care for referral to either General surgery or Gastroenterology for repeat colonoscopy. We will send a short course of pain medication. Discussed return precautions all questions answered. Copy of patient's CT findings were provided to share with her physician. Discharge Plan Departure Patient Disposition: Home Clinical Impression: Pancolitis Instructions: DI for Colitis Activity Restrictions/Additional Instructions: Follow up with your physician for recheck, your CT today shows pancolitis or inflammation throughout the colon. I think he would benefit from having repeat colonoscopy. You have a trace fat containing ventral hernia on your CT imaging. A copy of your CT report is included in your paperwork. Your labs today were overall reassuring, we can try a short course of prednisone to see if this is helpful for your symptoms. Take daily until completed. You can take acetaminophen up to a 1000 mg every 6 hours as needed for pain and/or ibuprofen up to 600 mg every 6 hours. If this is inadequate for pain you can take the narcotic pain medication provided with these medications. You can take 1-2 tablets every 6 hours as needed for pain. This medication can make you sleepy do not drive, perform hazardous activities or make any major decisions while taking it. This medication will make you constipated please take a stool softener once to twice daily until stools are soft and regular. Prescription sent to [facility] in [place]. Please return if you are having fevers, worsening abdominal back or flank pain, vomiting, black or bloody stools, difficulty or inability to urinate or other new or concerning changes. Prescriptions: New prednisone 10 mg tablets,dose pack See Rx Instructions .ROUTE .COMPLEX Qty: 21 0RF Rx Instructions: 6 tabs p.o. x1 day, then 5 tabs p.o. x1 day, then 4 tablets p.o. x1 day, then 3 tabs p.o. x1 day, then 2 tabs p.o. x1 day, then 1 tab p.o. x1 day tramadol 50 mg tablet 50 mg PO Q6H PRN (Reason: pain) Qty: 10 0RF No Action cetirizine 10 MG tablet 10 mg PO QDAYP PRN (Reason: Allergy Symptoms) Qty: 0 pseudoephedrine HCl [Sudafed] 30 mg Tablet 1 tab PO PRN PRN (Reason: Congestion) cyclobenzaprine 1 tab PO PRN PRN (Reason: Spasms) Patient Comments: has on hand ondansetron 4 mg tablet,disintegrating 4 mg PO Q6H PRN (Reason: Nausea) ibuprofen 100 mg/5 mL Suspension 0 mg PO DAILY Patient Comments: patient states takes with liquid tylenol acetaminophen 160 mg/5 mL (5 mL) Suspension 0 mg PO DAILY Patient Comments: patient states takes together with Ibuprofen meclizine 25 mg tablet 25 mg PO BID-TID PRN (Reason: dizziness) Qty: 14 0RF Referrals: ProviderHolly [Primary Care Provider] - Stand Alone Forms: Patient Portal/API/Survey
--- NOTE | 2024-07-19 10:14 | DI.CT.S_ITS ---
PROCEDURE: CT ABDOMEN PELVIS W CON INDICATIONS: abd pain, R>L, hx colitis, mild R flank x 3wks TECHNIQUE: After the administration of intravenous contrast, axial sections acquired from the lung bases to the pubic symphysis. Coronal and sagittal reformats were performed. For radiation dose reduction, the following was used: automated exposure control, adjustment of mA and/or kV according to patient size. COMPARISON: [facility], CT, CT KIDNEY URETER BLADDER (KUB), 01/04/2019, 10:01. [facility], CT, CT ABDOMEN PELVIS W CON, 05/12/2018, 11:23. FINDINGS: Image quality: Diagnostic. Lower Chest: No significant findings. ABDOMEN: Liver: No solid mass. Gallbladder: No radiopaque gallstones or wall thickening. Biliary ducts: No biliary dilation. Pancreas: No ductal dilation. Spleen: Size is within normal limits. Adrenal Glands: No adrenal nodules. Kidneys and Ureters: No hydronephrosis. No solid mass. No complex renal cystic lesion which requires follow up. Simple right renal cyst. Stomach and Bowel: There is a diffuse appearance of colonic thickening with mild inflammatory change. It is most severe in the right and transverse colon. No appreciable diverticular present. Peritoneum: No abnormal intraperitoneal fluid. No free air. Ventral Wall: Trace fat containing ventral hernia. Abdominal Nodes: No retroperitoneal or mesenteric adenopathy by size criteria. Vessels: Aorta and inferior vena cava are normal in size. PELVIS: Pelvic Organs: IUD is present. Bladder: No bladder wall thickening, accounting for underdistention. Pelvic Nodes: No enlarged lymph nodes. Miscellaneous: No inguinal hernias are seen. Bones: No aggressive osseous abnormality. 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 No abscess. No perforation. Dictated by: Ami Cordero M.D. on 07/19/2024 at 10:51 Approved by: Ami Cordero M.D. on 07/19/2024 at 11:03
[2024-07-19 10:16] VITALS: BP 175/85; PULSE 114; RESP 18; TEMP 36.8; O2SAT 100
[2024-07-19 10:25] LABS: Add Manual Diff / Slide Review NO; Basophils Absolute Auto 0 /uL (0-100); Basophils Percent Auto 0.3 % (0-2); Eosinophils Absolute Auto 0 /uL (0-450); Eosinophils Percent Auto 0.6 % (2-4); Hematocrit 46.9 % (36-46); Hemoglobin 15.7 g/dL (12.0-16.0); Lymphocytes Absolute Auto 1500 /uL (1100-4500); Lymphocytes Percent Auto 20.3 % (25-40); Mean Corpuscular HGB Conc 33.4 % (30-36); Mean Corpuscular Hemoglobin 32.4 PG (26-34); Mean Corpuscular Volume 97.1 fL (80-100); Monocytes Absolute Auto 600 /uL (0-900); Monocytes Percent Auto 7.7 % (3-14); Neutrophils Absolute Auto 5200 /uL (1500-7000); Neutrophils Percent Auto 71.1 % (50-75); Platelet Count 242 X10^3/uL (150-400); Red Blood Cell Count 4.83 X10^6/uL (4.0-5.2); Red Cell Distribution Width 14.8 % (11.6-14.8); White Blood Cell Count 7.4 X10^3/uL (4.5-11.0)
[2024-07-19 10:40] LABS: Alanine Aminotransferase 17 IU/L (<35); Albumin 4.7 g/dL (3.5-5.0); Albumin Globulin Ratio 1.3 (1.0-2.8); Alkaline Phosphatase 61 U/L (38-126); Aspartate Aminotransferase 28 IU/L (14-36); BUN Creatinine Ratio 15.5 (6-22); Bilirubin Total 0.9 mg/dL (0.2-1.3); Blood Urea Nitrogen 11 mg/dL (7-17); Calcium 9.4 mg/dL (8.4-10.2); Carbon Dioxide 19 mmol/L (22-32); Chloride 106 mmol/L (98-107); Estimated Glomerular Filt Rate > 60 mL/min (>60); Globulin 3.7 g/dL (1.7-4.1); Glucose 123 mg/dL (70-100); HEMOLYSIS 19 (0-50); Lipase 202 U/L (23-300); Potassium 3.6 mmol/L (3.4-5.1); Sodium 136 mmol/L (137-145); Total Protein 8.4 g/dL (6.3-8.2)
[2024-07-19 10:59] LABS: Bacteria Urine Moderate (10-30); Culture Indicated Urine Cult Not Indicated; RBC Urine None Seen (0-5/HPF); Squamous Epithelial Cell Urine 5-10 /HPF (0-5/HPF); Urine Volume 10mL (spun); WBC Urine 1-5/HPF (0-5/HPF)
[2024-07-19 11:18] VITALS: PULSE 89; O2SAT 98
[2024-07-19 11:30] VITALS: BP 135/72; PULSE 88; O2SAT 97
[2024-07-19 12:00] VITALS: BP 135/86; PULSE 93; O2SAT 96
[2024-07-19 12:30] VITALS: BP 132/81; PULSE 89; O2SAT 97
[2024-07-19] MEDS: methylPREDNISolone 125 MG/2 ML VIAL 60 MG IV (12:54)
--- NOTE | 2024-07-19 18:47 | PC.NURSE ---
Patient called department, initial RX to wrong pharmacy. Per Dr Jurado Prednisone dose pack to be called into [facility] pharmacy for patient.
== END 2024-07-19 13:05 | disposition home or self-care (01) ==
PROVIDERS: Emergency Provider Emergency Medicine
DX: K52.9 Noninfective gastroenteritis and colitis, unspecified (principal); R50.9 Fever, unspecified; R11.0 Nausea; N93.9 Abnormal uterine and vaginal bleeding, unspecified; Z97.5 Presence of (intrauterine) contraceptive device; R79.89 Other specified abnormal findings of blood chemistry
CPT/HCPCS: 74177; 80053; 81003; 81015; 81025; 83690; 84443; 85025; 96374; 99283; 99284; J2919; Q9967